=== PATIENT | female | born 1960 | race Caucasian/White ===

== ENCOUNTER 2019-02-03 10:42 | Outpatient (RCR) | payer OTHER, SELFPAY ==
[2019-01-24 10:29] LABS: Hematocrit 30.2 % (37.0-47.0); Hemoglobin 9.2 g/dL (12.0-15.0); Mean Corpuscular HGB Conc 30.5 g/dl (32-36); Mean Corpuscular Volume 91.8 fl (80-100); Mean Platelet Volume 10.6 fl (7.4-10.4); Platelet Count Result 156 k/mm3 (150-375); Red Blood Count 3.29 M/mm3 (4.2-5.4); Red Cell Distribution Width 14.1 % (11.5-14.5); White Blood Count 7.3 K/mm3 (4.5-10.0)
[2019-01-24 10:30] LABS: Albumin Level 3.2 g/dL (3.5-5.1); Blood Urea Nitrogen 13 mg/dL (7-17); Calcium 7.3 mg/dL (8.4-10.2); Carbon Dioxide 30 mmol/L (22-30); Chloride 102 mmol/L (98-107); Estimated Glomerular Filt Rate > 60; Glucose 205 mg/dL (65-105); Magnesium 1.3 mg/dL (1.6-2.3); Phosphorus 2.4 mg/dL (2.5-4.5); Potassium 3.5 mmol/L (3.4-5.0); Sodium 137 mmol/L (137-145)
[2019-01-26 10:10] LABS: Tacrolimus Prograf 5.4 mcg/L
[2019-01-26 13:15] LABS: Albumin Level 3.4 g/dL (3.5-5.1); Blood Urea Nitrogen 13 mg/dL (7-17); Calcium 8.5 mg/dL (8.4-10.2); Carbon Dioxide 30 mmol/L (22-30); Chloride 100 mmol/L (98-107); Estimated Glomerular Filt Rate > 60; Glucose 267 mg/dL (65-105); Magnesium 1.3 mg/dL (1.6-2.3); Phosphorus 2.2 mg/dL (2.5-4.5); Potassium 3.9 mmol/L (3.4-5.0); Sodium 137 mmol/L (137-145)
[2019-01-26 13:30] LABS: Hematocrit 32.7 % (37.0-47.0); Hemoglobin 9.8 g/dL (12.0-15.0); Mean Corpuscular Hemoglobin 28.1 pg (26-34); Mean Corpuscular Volume 93.7 fl (80-100); Mean Platelet Volume 10.3 fl (7.4-10.4); Platelet Count Result 235 k/mm3 (150-375); Red Blood Count 3.49 M/mm3 (4.2-5.4); Red Cell Distribution Width 14.4 % (11.5-14.5); White Blood Count 7.5 K/mm3 (4.5-10.0)
[2019-01-28 17:50] LABS: Tacrolimus Prograf 6.4 mcg/L
[2019-01-31 10:43] LABS: Hematocrit 33.8 % (37.0-47.0); Hemoglobin 10.2 g/dL (12.0-15.0); Mean Corpuscular HGB Conc 30.2 g/dl (32-36); Mean Corpuscular Hemoglobin 28.3 pg (26-34); Mean Corpuscular Volume 93.9 fl (80-100); Mean Platelet Volume 10.3 fl (7.4-10.4); Platelet Count Result 293 k/mm3 (150-375); Red Cell Distribution Width 14.8 % (11.5-14.5); White Blood Count 9.4 K/mm3 (4.5-10.0)
[2019-01-31 10:50] LABS: Albumin Level 3.7 g/dL (3.5-5.1); Blood Urea Nitrogen 21 mg/dL (7-17); Calcium 9.3 mg/dL (8.4-10.2); Carbon Dioxide 30 mmol/L (22-30); Chloride 100 mmol/L (98-107); Estimated Glomerular Filt Rate > 60; Glucose 138 mg/dL (65-105); Magnesium 1.5 mg/dL (1.6-2.3); Phosphorus 2.7 mg/dL (2.5-4.5); Potassium 4.5 mmol/L (3.4-5.0); Sodium 137 mmol/L (137-145)
[2019-02-01 23:32] LABS: Tacrolimus Prograf 7.9 mcg/L
[2019-02-03 10:52] LABS: Albumin Level 3.8 g/dL (3.5-5.1); Blood Urea Nitrogen 22 mg/dL (7-17); Calcium 9.9 mg/dL (8.4-10.2); Carbon Dioxide 29 mmol/L (22-30); Chloride 100 mmol/L (98-107); Estimated Glomerular Filt Rate 57; Glucose 169 mg/dL (65-105); Magnesium 1.4 mg/dL (1.6-2.3); Phosphorus 2.8 mg/dL (2.5-4.5); Potassium 4.3 mmol/L (3.4-5.0); Sodium 137 mmol/L (137-145)
[2019-02-03 10:58] LABS: Hematocrit 32.1 % (37.0-47.0); Hemoglobin 9.9 g/dL (12.0-15.0); Mean Corpuscular HGB Conc 30.8 g/dl (32-36); Mean Corpuscular Hemoglobin 28.9 pg (26-34); Mean Corpuscular Volume 93.9 fl (80-100); Mean Platelet Volume 10.5 fl (7.4-10.4); Platelet Count Result 250 k/mm3 (150-375); Red Blood Count 3.42 M/mm3 (4.2-5.4); Red Cell Distribution Width 14.7 % (11.5-14.5); White Blood Count 7.2 K/mm3 (4.5-10.0)
[2019-02-05 13:47] LABS: Tacrolimus Prograf 7.2 mcg/L
== END 2019-04-24 23:59 | disposition home or self-care (01) ==
LOC: ANHLAB 10:42
DX: N18.6 End stage renal disease (principal); I25.10 Atherosclerotic heart disease of native coronary artery without angina pectoris; I13.2 Hypertensive heart and chronic kidney disease with heart failure and with stage 5 chronic kidney disease, or end stage renal disease; E11.22 Type 2 diabetes mellitus with diabetic chronic kidney disease; Z48.22 Encounter for aftercare following kidney transplant
CPT/HCPCS: 36415; 80069; 80197; 83735; 85027

== ENCOUNTER 2019-02-14 11:23 | Outpatient (RCR) | payer OTHER, SELFPAY ==
[2019-02-07 12:51] LABS: Hematocrit 32.8 % (37.0-47.0); Mean Corpuscular HGB Conc 30.5 g/dl (32-36); Mean Corpuscular Hemoglobin 28.8 pg (26-34); Mean Corpuscular Volume 94.5 fl (80-100); Mean Platelet Volume 11.1 fl (7.4-10.4); Platelet Count Result 231 k/mm3 (150-375); Red Blood Count 3.47 M/mm3 (4.2-5.4); Red Cell Distribution Width 15.3 % (11.5-14.5); White Blood Count 6.8 K/mm3 (4.5-10.0)
[2019-02-07 13:09] LABS: Albumin Level 3.8 g/dL (3.5-5.1); Blood Urea Nitrogen 29 mg/dL (7-17); Carbon Dioxide 25 mmol/L (22-30); Chloride 101 mmol/L (98-107); Estimated Glomerular Filt Rate 46; Glucose 138 mg/dL (65-105); Magnesium 1.3 mg/dL (1.6-2.3); Phosphorus 2.5 mg/dL (2.5-4.5); Potassium 4.2 mmol/L (3.4-5.0); Sodium 139 mmol/L (137-145)
[2019-02-09 19:42] LABS: Tacrolimus Prograf 8.8 mcg/L
[2019-02-10 11:33] LABS: Hematocrit 31.4 % (37.0-47.0); Hemoglobin 9.5 g/dL (12.0-15.0); Mean Corpuscular HGB Conc 30.3 g/dl (32-36); Mean Corpuscular Hemoglobin 28.5 pg (26-34); Mean Corpuscular Volume 94.3 fl (80-100); Mean Platelet Volume 11.1 fl (7.4-10.4); Platelet Count Result 221 k/mm3 (150-375); Red Blood Count 3.33 M/mm3 (4.2-5.4); Red Cell Distribution Width 15.5 % (11.5-14.5); White Blood Count 6.9 K/mm3 (4.5-10.0)
[2019-02-10 12:07] LABS: Blood Urea Nitrogen 32 mg/dL (7-17); Carbon Dioxide 27 mmol/L (22-30); Chloride 100 mmol/L (98-107); Estimated Glomerular Filt Rate 36; Glucose 125 mg/dL (65-105); Potassium 4.6 mmol/L (3.4-5.0); Sodium 135 mmol/L (137-145)
[2019-02-10 12:14] LABS: Albumin Level 3.8 g/dL (3.5-5.1); Magnesium 1.4 mg/dL (1.6-2.3)
[2019-02-12 21:43] LABS: Tacrolimus Prograf 11.4 mcg/L
[2019-02-14 11:33] LABS: Hematocrit 31.4 % (37.0-47.0); Hemoglobin 9.7 g/dL (12.0-15.0); Mean Corpuscular HGB Conc 30.9 g/dl (32-36); Mean Platelet Volume 11.3 fl (7.4-10.4); Platelet Count Result 191 k/mm3 (150-375); Red Blood Count 3.34 M/mm3 (4.2-5.4); Red Cell Distribution Width 15.9 % (11.5-14.5); White Blood Count 7.6 K/mm3 (4.5-10.0)
[2019-02-14 11:46] LABS: Albumin Level 3.9 g/dL (3.5-5.1); Blood Urea Nitrogen 28 mg/dL (7-17); Calcium 9.9 mg/dL (8.4-10.2); Carbon Dioxide 29 mmol/L (22-30); Chloride 102 mmol/L (98-107); Estimated Glomerular Filt Rate 38; Glucose 103 mg/dL (65-105); Magnesium 1.6 mg/dL (1.6-2.3); Phosphorus 2.9 mg/dL (2.5-4.5); Potassium 4.4 mmol/L (3.4-5.0); Sodium 139 mmol/L (137-145)
[2019-02-16 07:02] LABS: Tacrolimus Prograf 8.3 mcg/L
== END 2019-05-08 23:59 | disposition home or self-care (01) ==
LOC: ANHLAB 11:23
PROVIDERS: Visit Provider Surgery
DX: Z48.22 Encounter for aftercare following kidney transplant (principal); N18.6 End stage renal disease; I25.10 Atherosclerotic heart disease of native coronary artery without angina pectoris; I13.2 Hypertensive heart and chronic kidney disease with heart failure and with stage 5 chronic kidney disease, or end stage renal disease; I50.32 Chronic diastolic (congestive) heart failure; E11.22 Type 2 diabetes mellitus with diabetic chronic kidney disease
CPT/HCPCS: 80069; 80197; 83735; 85027

== ENCOUNTER 2019-02-17 10:23 | Outpatient (RCR) | payer OTHER, SELFPAY ==
[2019-02-17 10:51] LABS: Hematocrit 31.7 % (37.0-47.0); Hemoglobin 9.7 g/dL (12.0-15.0); Mean Corpuscular HGB Conc 30.6 g/dl (32-36); Mean Corpuscular Hemoglobin 28.8 pg (26-34); Mean Corpuscular Volume 94.1 fl (80-100); Platelet Count Result 202 k/mm3 (150-375); Red Blood Count 3.37 M/mm3 (4.2-5.4); Red Cell Distribution Width 15.4 % (11.5-14.5)
[2019-02-17 12:39] LABS: Albumin Level 3.8 g/dL (3.5-5.1); Blood Urea Nitrogen 30 mg/dL (7-17); Calcium 10.6 mg/dL (8.4-10.2); Carbon Dioxide 31 mmol/L (22-30); Chloride 97 mmol/L (98-107); Estimated Glomerular Filt Rate 36; Glucose 56 mg/dL (65-105); Magnesium 1.8 mg/dL (1.6-2.3); Phosphorus 3.1 mg/dL (2.5-4.5); Potassium 4.3 mmol/L (3.4-5.0); Sodium 137 mmol/L (137-145)
[2019-02-18 14:15] LABS: BK Virus Specimen Source Whole Blood
[2019-02-18 19:56] LABS: Tacrolimus Prograf 9.1 mcg/L
[2019-02-20 10:28] LABS: CMV DNA Quant PCR IU/mL <200 IU/mL (<200); Cytomegalovirus DNA Quant PCR <2.30 log IU/mL (<2.30); Cytomegalovirus DNA Source Plasma
== END 2019-05-18 23:59 | disposition home or self-care (01) ==
LOC: ANHLAB 10:23
PROVIDERS: Visit Provider Surgery
DX: N18.6 End stage renal disease (principal); I50.32 Chronic diastolic (congestive) heart failure; I25.10 Atherosclerotic heart disease of native coronary artery without angina pectoris; I13.2 Hypertensive heart and chronic kidney disease with heart failure and with stage 5 chronic kidney disease, or end stage renal disease; E11.22 Type 2 diabetes mellitus with diabetic chronic kidney disease; Z48.22 Encounter for aftercare following kidney transplant
CPT/HCPCS: 80069; 80197; 83735; 85027; 87497; 87799

== ENCOUNTER → 2019-09-15 11:17 | Outpatient (CLI) | payer OTHER, MEDICARE, SELFPAY ==
--- NOTE | ~2019-09-15 | MM_ITS ---
EXAMINATION: MM screening [facility] BI w disha HISTORY: Screening mammogram TECHNIQUE: Craniocaudal and mediolateral oblique 3-D tomosynthesis images were obtained and synthetic 2-D images were generated. CAD analysis was submitted and interpreted. COMPARISON: 06/22/2018 BREAST PARENCHYMAL COMPOSITION: There are scattered areas of fibroglandular density. FINDINGS: RIGHT BREAST: An asymmetry is present in the middle third of the breast 5 cm from the nipple on crani ocaudal tomosynthesis image 32/67. LEFT BREAST: There is no evidence of suspicious mass, calcification, or architectural distortion to s uggest malignancy. There has been no significant interval change. IMPRESSION: 1. Right breast asymmetry on the craniocaudal view. 2. Additional mammographic views and possible breast ultrasound are recommended. BI-RADS Category 0: Incomplete: Needs additional imaging evaluation. Reviewed, dictated and finalized at location A. IMPRESSION: 1. Right breast asymmetry on the craniocaudal view. 2. Additional mammographic views and possible breast ultrasound are recommended . BI-RADS Category 0: Incomplete: Needs additional imaging evaluation.
--- NOTE | ~2019-09-15 | DEXA_ITS ---
Bone Density Report Name: Dot Dykes Age: 59 Sex: Female Ethnicity: White Date of : 1960 Indication: postmenopausal; screening for osteoporosis; height loss; end stage renal disease; Referring Provider: Jocelin Sanchez Study: Bone densitometry was performed. Exam Date: September 15, 2019 Accession number: [id number] Bone Density: Region BMD T-score Z-score Classification AP Spine (L1-L4) 0.884 -1.5 -0.1 Osteopenia Femoral Neck (Left) 0.674 -1.6 -0.3 Osteopenia Total Hip (Left) 0.711 -1.9 -1.0 Osteopenia Femoral Neck (Right) 0.706 -1.3 0.0 Osteopenia Total Hip (Right) 0.693 -2.0 -1.1 Osteopenia Total Hip Mean 0.702 -2.0 -1.1 Osteopenia World Health Organization criteria for BMD impression classify patients as: Normal (T-score at or above -1.0), Osteopenia (T-score between -1.0 and -2.5), or Osteoporosis (T-score at or below -2.5). 10-year Fracture Risk(1): Major Osteoporotic Fracture 8.1% Hip Fracture 0.7% Reported Risk Factors: [place] (), Neck BMD=0.674, BMI=25.3 (1) FRAX(R) Version 3.08. Fracture probability calculated for an untreated patient. Fracture probability may be lower if the patient has received treatment. Clinical Information Provided by Patient: Has used the following medications: Vitamin D, Calcium Has the following medical conditions: End stage renal disease Patient maximum height was 71 Menopause Age: 55 Onset of menses at age 12 Number of children 2 Impression: The patient has low bone mass, based on the Right Total Hip T-score. The patient has an estimated ten-year risk of hip fracture of 0.7% and an estimated ten-year risk of major fracture of 8.1%, based on the WHO FRAX algorithm. Discussion: BONE DENSITY IS LOW AT ONE OR MORE SKELETAL SITES. This patient's lowest T-score is low at one or more skeletal sites. It meets the World Health Organization's (WHO) criteria for ?low bone mass? (T-score between -1.0 and -2.5). The patient's 10-year risk of fracture as calculated by FRAX is less than the threshold where pharmacological therapy is recommended by the National Osteoporosis Foundation (NOF). However, all treatment decisions require clinical judgment and consideration of individual patient factors, including patient preferences, comorbidities, previous drug use, risk factors not captured in the FRAX model (e.g., frailty, falls, vitamin D deficiency, increased bone turnover, interval significant decline in bone density) and possible under or overestimation of fracture risk by FRAX. The patient should follow a healthful lifestyle (good nutrition with adequate calcium and vitamin D, and appropriate weight-bearing exercise). Follow-Up: Consider repeating this study in 2 to 3 years to reassess this patient's status, or sooner if there is some new clinical indic
== END ==
PROVIDERS: Visit Provider Obstetrics & Gynecology
DX: Z12.31 Encounter for screening mammogram for malignant neoplasm of breast (principal); Z79.52 Long term (current) use of systemic steroids; R92.8 Other abnormal and inconclusive findings on diagnostic imaging of breast; M85.88 Other specified disorders of bone density and structure, other site; M85.852 Other specified disorders of bone density and structure, left thigh; M85.851 Other specified disorders of bone density and structure, right thigh
CPT/HCPCS: 77063; 77067; 77080

== ENCOUNTER → 2019-10-03 14:28 | Outpatient (CLI) | payer OTHER, MEDICARE, SELFPAY ==
--- NOTE | ~2019-10-03 | MMUS_ITS ---
EXAMINATION: MM diagnostic mammo unilat RT, US breast RT limited HISTORY: Follow-up right breast asymmetry TECHNIQUE: Additional 3-D tomosynthesis images of the right breast were performed and synthetic 2-D i mages were generated. CAD analysis was submitted and interpreted. High resolution right breast ultras ound was performed. COMPARISON: 09/15/2019 BREAST PARENCHYMAL COMPOSITION: Breast composed of scattered areas of fibroglandular density. FINDINGS: MAMMOGRAPHIC FINDINGS: The focal area of asymmetry is less apparent with spot compression and mediolateral views, most likel y superimposed fibroglandular tissue. ULTRASOUND: Left breast ultrasound: At 2:00, 6 cm from the nipple, there is a 4 mm hypoechoic mass, most likely benign. There is parallel orientation, circumscribed margins, no enhanced through transmission or internal vascularity. IMPRESSION: 1. Probable benign right breast mass and focal right breast asymmetry. 2. Recommend 6 month follow-up diagnostic right mammogram and ultrasound BI-RADS category 3, probably benign findings. Reviewed, dictated and finalized at location A. IMPRESSION: 1. Probable benign right breast mass and focal right breast asymmetry. 2. Recommend 6 month follow-up diagnostic right mammogram and ultrasound BI-RADS category 3, probably benign findings.
== END ==
PROVIDERS: Visit Provider Obstetrics & Gynecology
DX: R92.8 Other abnormal and inconclusive findings on diagnostic imaging of breast (principal)
CPT/HCPCS: 76642; 77065

== ENCOUNTER → 2020-04-12 08:52 | Outpatient (CLI) | payer OTHER, MEDICARE, SELFPAY ==
--- NOTE | ~2020-04-12 | MMUS_ITS ---
EXAMINATION: MM diagnostic [facility] RT w disha, US breast RT limited HISTORY: Probable benign right breast mass and focal right breast asymmetry follow-up from 10/03/2019 d iagnostic right mammogram and limited right breast ultrasound examination TECHNIQUE: ML, MLO and craniocaudal 3-D tomosynthesis images of the right breast were performed and s ynthetic 2-D images were generated. CAD analysis was submitted and interpreted. High resolution targe andres right breast ultrasound was performed. COMPARISON: 10/16/2019 diagnostic right digital mammogram and limited right breast ultrasound 09/15/2019 bilateral digital screening mammogram FINDINGS: MAMMOGRAPHIC FINDINGS: No suspicious mass, architectural distortion, malignant calcification, skin thickening or retraction or significant new or developing density is evident. The focal area of asymmetry suggested on a craniocaudal Tomosynthesis image () of 09/15/2019 is n o longer evident. ULTRASOUND: 2:00 6 cm from nipple: Stable appearance of 2.8 x 3.5 mm hypoechoic area without internal vascularity or posterior shadowing Parallel circumscribed 7 x 6 x 2 mm hypoechoic area at 5:00 5 cm from nipple, without internal vascul arity or posterior shadowing. IMPRESSION: 1. No mammographic evidence of malignancy 2. Routine annual mammographic screening is recommended. BI-RADS Category 2: Benign finding(s). Reviewed, dictated and finalized at location A. [employer] IMPRESSION: 1. No mammographic evidence of malignancy 2. Routine annual mammographic screening is recommended. BI-RADS Category 2: Benign finding(s).
== END ==
PROVIDERS: PCP Internal Medicine; Visit Provider Obstetrics & Gynecology
DX: N63.10 Unspecified lump in the right breast, unspecified quadrant (principal); R92.8 Other abnormal and inconclusive findings on diagnostic imaging of breast
CPT/HCPCS: 76642; 77061; 77065; G0279

== ENCOUNTER → 2020-10-17 16:21 | Outpatient (CLI) | payer OTHER, MEDICARE, SELFPAY ==
--- NOTE | ~2020-10-17 | MM_ITS ---
EXAMINATION: MM screening [facility] BI w disha HISTORY: Screening mammogram TECHNIQUE: Craniocaudal and mediolateral oblique 3-D tomosynthesis images were obtained and synthetic 2-D images were generated. CAD analysis was submitted and interpreted. COMPARISON: 04/12/2020, 10/03/2019, 09/15/2019, 06/22/2018 BREAST PARENCHYMAL COMPOSITION: There are scattered areas of fibroglandular density. FINDINGS: There is no evidence of suspicious mass, calcification, or architectural distortion to sugg est malignancy in either breast. There has been no suspicious interval change. IMPRESSION: 1. No mammographic evidence of malignancy. 2. Recommend routine screening mammography in one year. BI-RADS Category 1: Negative Reviewed, dictated and finalized at location A.
== END ==
PROVIDERS: PCP Internal Medicine; Visit Provider Obstetrics & Gynecology
DX: Z12.31 Encounter for screening mammogram for malignant neoplasm of breast (principal)
CPT/HCPCS: 77063; 77067

== ENCOUNTER → 2022-01-14 10:26 | Outpatient (CLI) | payer MEDICARE, OTHER, SELFPAY ==
--- NOTE | ~2022-01-14 | MM_ITS ---
EXAMINATION: MM screening [facility] BI w disha HISTORY: Screening TECHNIQUE: Craniocaudal and mediolateral oblique 3-D tomosynthesis images were obtained and synthetic 2-D images were generated. CAD analysis was submitted and interpreted. COMPARISON: Comparison to multiple prior studies sequentially, with oldest reviewed study dated 06/22. BREAST PARENCHYMAL COMPOSITION: Breast composed of scattered areas of fibroglandular density FINDINGS: There is no evidence of suspicious mass, calcification, or architectural distortion to sugg est malignancy in either breast. There has been no suspicious interval change. IMPRESSION: 1. No mammographic evidence of malignancy. 2. Recommend routine screening mammography in one year. BI-RADS Category 1: Negative Reviewed, dictated and finalized at location A. 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
== END ==
PROVIDERS: PCP Internal Medicine; Visit Provider Obstetrics & Gynecology
DX: Z12.31 Encounter for screening mammogram for malignant neoplasm of breast (principal)
CPT/HCPCS: 77063; 77067

== ENCOUNTER 2023-03-24 10:16 | Outpatient (CLI) | payer OTHER, SELFPAY ==
--- NOTE | ~2023-03-24 | MM_ITS ---
EXAMINATION: MM screening [facility] BI w disha HISTORY: Screening mammogram TECHNIQUE: Craniocaudal and mediolateral oblique 3-D tomosynthesis images were obtained and synthetic 2-D images were generated. CAD analysis was submitted and interpreted. COMPARISON: 01/14/2022, 10/17/2020, 04/12/2020, 10/03/2019, 09/15/2019 BREAST PARENCHYMAL COMPOSITION: There are scattered areas of fibroglandular density. FINDINGS: No suspicious mass, calcification, or architectural distortion are identified in either lars ast to suggest malignancy. There has been no suspicious interval change. IMPRESSION: 1. No mammographic evidence of malignancy. 2. Recommend routine screening mammography in one year. BI-RADS Category 1: Negative Reviewed, dictated and finalized at location A. 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
--- NOTE | ~2023-03-24 | DEXA_ITS ---
Bone Density Report Name: LEONARDO ADAMS Age: 63 Sex: Female Ethnicity: White Date of : 1960 Indication: osteopenia; height loss; history of glucocorticoids; end stage renal disease; postmenopausal Referring Provider: Jocelin Sanchez Study: Bone densitometry was performed. Exam Date: March 24, 2023 Accession number: [id number] Bone Density: Region BMD T-score Z-score Classification AP Spine (L1-L4) 0.775 -2.5 -0.8 Osteoporosis Femoral Neck (Left) 0.646 -1.8 -0.4 Osteopenia Total Hip (Left) 0.626 -2.6 -1.5 Osteoporosis Femoral Neck (Right) 0.695 -1.4 0.0 Osteopenia Total Hip (Right) 0.644 -2.4 -1.3 Osteopenia Total Hip Mean 0.635 -2.5 -1.4 Osteoporosis World Health Organization criteria for BMD impression classify patients as: Normal (T-score at or above -1.0), Osteopenia (T-score between -1.0 and -2.5), or Osteoporosis (T-score at or below -2.5). 10-year Fracture Risk: FRAX not reported because: Some T-score for Spine Total or Hip Total or Femoral Neck at or below -2.5 Previous Exams: Region Exam Age BMD T-score BMD Change BMD Change Date g/cm2 vs Baseline vs Previous AP Spine(L1-L4) 03/24/2023 63 0.775 -2.5 -0.110* -0.110* 09/15/2019 59 0.884 -1.5 Total Hip(Left) 03/24/2023 63 0.626 -2.6 -0.084* -0.084* 09/15/2019 59 0.711 -1.9 Total Hip(Right) 03/24/2023 63 0.644 -2.4 -0.049* -0.049* 09/15/2019 59 0.693 -2.0 *Denotes significance at 95% confidence level, LSC for AP Spine = 0.022 g/cm2, LSC for Total Hip = 0.027 g/cm2 Clinical Information Provided by Patient: Has taken Glucocorticoids Has used the following medications: Vitamin D, Calcium, prednesone Has the following medical conditions: End stage renal disease, parathyroid removed Patient maximum height was 71 Menopause Age: 55 Drinks caffeinated beverages Onset of menses at age 12 Number of children 2 Impression: The patient has osteoporosis, based on the Left Total Hip T-score. The patient has risk factors, including: history of glucocorticoid therapy. The BMD for the AP Spine(L1-L4) decreased, changing by -0.110 since the last DXA exam. The BMD for the Total Hip(Left) decreased, changing by -0.084 since the last DXA exam. The BMD for the Total Hip(Right) decreased, changing by -0.049 since the last DXA exam. Discussion: INCREASED RISK OF FRACTURE. BONE DENSITY IS UNDESIRABLY LOW AT ONE OR MORE SKELETAL SITES, CO
== END 2023-03-24 10:17 ==
LOC: MICIMG 10:17
PROVIDERS: PCP Obstetrics & Gynecology; Visit Provider Obstetrics & Gynecology
DX: Z12.31 Encounter for screening mammogram for malignant neoplasm of breast (principal); M81.0 Age-related osteoporosis without current pathological fracture; M85.852 Other specified disorders of bone density and structure, left thigh; M85.851 Other specified disorders of bone density and structure, right thigh
CPT/HCPCS: 77063; 77067; 77080

== ENCOUNTER 2024-04-26 11:53 | Outpatient (CLI) | payer MEDICARE, OTHER, SELFPAY ==
--- NOTE | ~2024-04-26 | MM_ITS ---
EXAMINATION: MM screening [facility] BI w disha HISTORY: Screening mammogram TECHNIQUE: Craniocaudal and mediolateral oblique 3-D tomosynthesis images were obtained and synthetic 2-D images were generated. CAD analysis was submitted and interpreted. COMPARISON: 03/24/2023, 01/14/2022, 10/17/2020 BREAST PARENCHYMAL COMPOSITION:Dense: The breasts are heterogeneously dense, which may obscure small masses. FINDINGS: No suspicious mass, calcification, or architectural distortion are identified in either lars ast to suggest malignancy. There has been no suspicious interval change. IMPRESSION: No mammographic evidence of malignancy. Recommend routine screening mammography in one year. BI-RADS Category 1: Negative Reviewed, dictated and finalized at location . 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
== END 2024-04-26 11:54 | disposition home or self-care (01) ==
LOC: MICIMG 11:55
PROVIDERS: PCP Obstetrics & Gynecology; Visit Provider Obstetrics & Gynecology
DX: Z12.31 Encounter for screening mammogram for malignant neoplasm of breast (principal)
CPT/HCPCS: 77063; 77067

== ENCOUNTER 2024-07-14 00:46 | Day surgery (SDC) | payer MEDICARE, OTHER, SELFPAY ==
[2024-07-06 10:57] VITALS: BMI 21.4
--- OUTSIDE RECORDS SUMMARY | 2024-07-14 00:50 | XMS_ITS | Data Portability ---
Author Organization [facility] MARYBeatriz Garcia [facility] Address [address] [facility] [place] [facility] [place] [address] Care Team Providers Care Window Assembler Name Role Phone LAZ DE SANTIAGO Primary Care Provider EMELYN FORDE Pile Driving Technician Assessment Encounter Date Assessment Date Assessment LastModified by Organization Details LastModified Time 04/04/2024 04/04/2024 flu swab positive for influenza A 30 mg daily x5 days she will double check this with the transplant team. Rest fluids if she gets worse she will contact us or transplant regular follow up with ri in 6 months [email or web address] Not available 04/04/2024 14:02:15 Plan of Treatment Reminders Order Date Submit Date Provider Last Modified By Organization Details Last Modified Time Details Appointments ANY 15 2024 11:00A M Laz De Santiago MD Not available Not available Not available Lab None recorded . Referral None recorded . Procedures None recorded . Surgeries None recorded . Imaging None recorded . Medication Orders Tamiflu 75 mg capsule 2024 025 [id number] [id number], [address], [place], [id number], 04/04/2024 16:43:59 Tamiflu 30 mg capsule 2024 025 [id number] [facility] #[id number], [address], [place], [id number], 04/04/2024 16:43:59 Patient TargetsNo targets recorded. Patient InstructionsNo instructions recorded. Reason for Referral None Reported. Results Created Date Observation Date Name Description Value Unit Range Abnormal Flag Note LastModifiedBy Organization Detail LastModifiedTime 03/09/19 25 03/09/2024 SARS- CoV+S ARS-C oV-2 (COVI D-19) Ag [Pres ence] in Respi rator y syste m speci men by Rapid immun oassa y influenza A Ag, POC Negati ve text: negati ve Influ octavio A Ag, POC Negat francia Negat francia [facility] EDW Not Available Not Available 04/14/2024 15:46:46 03/09/19 25 03/09/2024 SARS- CoV+S ARS-C oV-2 (COVI D-19) Ag [Pres ence] in Respi rator y syste m speci men by Rapid immun oassa y influenza B Ag, POC Negati ve text: negati ve Influ octavio B Ag, POC Negat francia Negat francia [facility] EDW Not Available Not Available 04/14/2024 15:46:46 03/09/19 25 03/09/2024 SARS- CoV+S ARS-C oV-2 (COVI D-19) Ag [Pres ence] in Respi rator y syste m speci men by Rapid immun oassa y covid-19 Ag POC Presum ptive Negati ve text: presum ptive negati ve, invali d COVID -19 Ag POC Presu mptiv e Negat francia Presu mptiv e Negat francia, Inval id [facility] EDW Not Available Not Available 04/14/2024 15:46:46 03/09/19 25 03/09/2024 SARS- CoV+S ARS-C oV-2 (COVI D-19) Ag [Pres ence] in Respi rator y syste m speci men by Rapid immun oassa y interpretati on and review of laboratory results Normal Not Available Not Available 04/02 15:46:46 05/12/1905/11/2024 Hemog lobin A1c/H emogl obin. total in Blood hemoglobin A1C, POC 5.9 % low: 4%high : 5.6% Hemog lobin A1C, POC 5.9 4.0 - 5.6 % Not Available Not Available 05/12/2024 14:56:53 Result Notes None recorded. Problems Name Problem SNOMED Code Status Onset Date Resolution Date Notes Provider Name and Address Organization Details Recorded Time Influenza caused by Influenza A virus 871516124 Active 2024 Laz De Santiago MD Attn: Chris patricia,[address] [place], [address], [facility] 14:00:50 Chronic diastolic heart failure 727163228 Active 2024 Laz De Santiago MD Attn: Chris patricia,[address] [place], [address], [facility] 14:00:51 Hyperlipidemia 79135578 Active 2024 Laz De Santiago MD Attn: Chris patricia,[address] [place], [address], [facility] 14:00:53 Essential hypertension 71406703 Active 2024 Laz De Santiago MD Attn: Chris patricia,[address] [place], [address], [facility] 14:00:54 Secondary hyperparathyro idism 49917570 Active 2024 Laz De Santiago MD Attn: Chris patricia,[address] [place], [address], [facility] 14:00:57 History of renal transplant 065042370 Active 2024 Laz De Santiago MD Attn: Chris patricia,[address] [place], [address], [facility] 14:00:58 Problem Notes None recorded. Procedures Surgical History Date Name Laterality Status Provider Name and Address Organization Details Recorded Time 03/02/19 19 transplant of kidney completed Ghada Luna MA [facility] 04/04/2024 12:13:42 cholecystectomy completed Ghada Luna MA [facility] 04/04/2024 12:12:30 amputation of the foot completed Ghada Luna MA [facility] 04/04/2024 12:13:26 Imaging Results None recorded. Procedure Notes None recorded. Medical Equipment None Reported. Allergies Allergen ID Allergen Name Allergen Category Reaction Reaction Severity Criticality Documentation Date Start Date Code Code System Note Provider Name and Address Organization Details Recorded Time 061795 ampicilli n / sulbactam medicatio n palpitati ons Not available high 04/04/2024 71021 48 RxNorm 01/18 - Appro farhad to give cefaz william with unasy n aller gy per Jacob alanis MD/Randell Crowe aft, Pharm D [place], [place] - [facility] 12:04:59 [id number] Product containin g glucocort icoid (product) medicatio n Not available Not available Not available 04/04/20242021 15022 6006 SNOMED Recei farhad VSTs, DO NOT give stero ids unles s discu ssed with prima ry atten ding. unrec ogniz ed react ion (text : Unkno wn, code: [id number]) (from exter nal sourc e) [place], [place] - [facility] 5 12:05:10 297214 codeine medicatio n nausea Not available low 04/04/2024 2670 RxNorm unrec ogniz ed react ion (text : Stoma ch upset , code: [id number]) (from exter nal sourc e) [place], [place] - [facility] 5 12:05:13 021850 rosuvasta tin medicatio n myalgias (muscle pain) Not available high 04/04/2024 30934 2 RxNorm Per cardi ology note, also has histo ry of intol eranc e to atorv astat in [place], [place] [facility] 12:05:16 Medications Name Sig Start Date Stop Date Status Note LastModified by Organization Details LastModified Time carvedilol 6.25 mg tablet active Not Available Not Available Not Available prednisone 10 mg tablet 04/04 completed Not Available Not Available Not Available atorvastati n 20 mg tablet 04/04 completed Not Available Not Available Not Available atorvastati n 10 mg tablet active Not Available Not Available Not Available cefpodoxime 100 mg tablet 04/04 completed Not Available Not Available Not Available sulfamethox azole 400 mg-trimetho prim 80 mg tablet TAKE 1 TABLET BY MOUTH TWICE DAILY FOR 14 DAYS THEN TAKE 1 TABLET BY MOUTH DAILY active Not Available Not Available No t Available prednisone 5 mg tablet active Not Available Not Available Not Available Calcium Antacid 200 mg (as calcium carbonate 500 mg) chewable tablet CHEW 1 TABLET BY MOUTH TWICE DAILY active Not Available Not Available No t Available ciprofloxac in 250 mg tablet 04/04 completed Not Available Not Available Not Available amlodipine 5 mg tablet 04/04 completed Not Available Not Available Not Available trimethopri m 100 mg tablet TAKE 1 TABLET BY MOUTH AT BEDTIME. START AFTER FINISHING COURSE OF BACTRIM 04/04 completed Not Available Not Available Not Available ciprofloxac in 500 mg tablet 04/04 completed Not Available Not Available Not Available Tamiflu 75 mg capsule Take 1 capsule twice a day by oral route for 5 days. 04/04 completed Not Available Not Available Not Available aspirin 81 mg tablet,jerson yed release active Not Available Not Available Not Available pantoprazol e 40 mg tablet,jerson yed release active Not Available Not Available Not Available calcitriol 0.5 mcg capsule active Not Available Not Available Not Available Vitamin B-6 100 mg tablet TAKE 2 TABLETS BY MOUTH TWICE DAILY active Not Available Not Available No t Available lisinopril 5 mg tablet active Not Available Not Available Not Available insulin lispro (U-100) 100 unit/mL subcutaneou s solution active Not Available Not Available N ot Available estradiol 0.01% (0.1 mg/gram) vaginal cream USE 1 GRAM VAGINALLY WEEKLY 04/04 completed Not Available Not Available Not Available moxifloxaci n 0.5 % eye drops 04/04 completed Not Available Not Available Not Available oseltamivir 30 mg capsule TAKE 1 CAPSULE BY MOUTH EVERY DAY FOR 5 DAYS active Not Available Not Available No t Available Envarsus XR 1 mg tablet,exte nded release TAKE 4 TABLETS BY MOUTH DAILY active Not Available Not Available No t Available Dexcom G6 Sensor active Not Available Not Available Not Available Vitals Date Recorded Body height Body mass index (BMI) Body weight Heart rate Oxygen saturation Oxygen saturation in Arterial blood by Pulse oximetry Systolic blood pressure Diastolic blood pressure Provider Name and Address Organization Details Last Updated DateTime 175.26 cm 20.7 kg/m2 07232.9 3 g 81 /min 99 % 99 % 122 mm[Hg] 80 mm[Hg] Ghada Luna [place] [facility] 12:04:42 Social History Question Answer Notes LastModified by E Ink Details LastModified Time Tobacco Smoking Status Never Smoker Ghada Luna MA null, [place] - [facility] 04/04/2024 12:02:15 Are You Blind Or Do You Have Difficulty Seeing? No Information n ot available 04/04/2024 What Is Your Level Of Caffeine Consumption? Moderate Information not available 04/04/2024 In The 14 Days Before Symptom Onset, Have You Had Close Contact With A Laboratory-confirm ed COVID-19 While That Case Was Ill? No Information n ot available 04/04/2024 In The 14 Days Before Symptom Onset, Have You Had Close Contact With A Person Who Is Under Investigation For COVID-19 While That Person Was Ill? No Information not available 04/04/2024 Have You Been To An Area Known To Be High Risk For COVID-19? No Information not available 04/04/2024 Are You Deaf Or Do You Have Serious Difficulty Hearing? No Information not available 04/04/2024 What Type Of Diet Are You Following? REGULAR Information n ot available 04/04/2024 Are There Any Guns Present In Your Home? No Information not available 04/04/2024 What Was The Date Of Your Most Recent Tobacco Screening? 04/04/2024 Information not available 04/04/2024 Do You Use Your Seat Belt Or Car Seat Routinely? Yes Information not available 04/04/2024 Do You Have Smoke And Carbon Monoxide Detectors In Your Home? Yes Information not available 04/04/2024 Do You Use Sunscreen Routinely? Yes Information not available 04/04/2024 Has Tobacco Cessation Counseling Been Provided? No Information not available 04/04/2024 Sex: Female Functional Status Question Answer Note LastModified by Organizat ion Details LastModified Time Do you use any illicit or recreational drugs? No Information not available 04/04/2024 Do you or have you ever used any other forms of tobacco or nicotine? No Information not available 04/04/2024 What is your level of alcohol consumption? Occasional Information not available 04/04/2024 Are you able to care for yourself? Yes Information n ot available 04/04/2024 Mental Status None recorded. Family History Nothing Reported. Medical History Condition Response High Blood Pressure Y Kidney or Bladder Problems Y High Cholesterol Y Gynecological HistoryNo gynecological history recorded. Obstetrics History GPAL:G 0 P 0 0 0 0 Immunizations Vaccine Type Date Status Note Provider Nam e and Address Organization Details Recorded Time Influenza, MDCK, quadrivalent, PF 3 completed AL[place], [place] - [facility] 04/04/2024 11:58:49 COVID-19, mRNA, LNP-S, PF, 30 mcg/0.3 mL dose 1 completed [place] [facility] 04/04/2024 11:58:49 COVID-19, mRNA, LNP-S, PF, 30 mcg/0.3 mL dose 1 completed [place] [facility] 04/04/2024 11:58:50 COVID-19, mRNA, LNP-S, PF, 30 mcg/0.3 mL dose 1 completed [place] [facility] 04/04/2024 11:58:50 COVID-19, mRNA, LNP-S, PF, 30 mcg/0.3 mL dose, jasen-sucrose 2 completed [place] [facility] 04/04/2024 11:58:50 COVID-19, mRNA, LNP-S, bivalent, PF, 30 mcg/0.3 mL dose 2 completed [place] [facility] 04/04/2024 11:58:50 RSV, recombinant, protein subunit RSVpreF, adjuvant reconstituted, 0.5 mL, PF 3 completed Ghada Luna, [place], [place] [facility] 04/04/2024 11:58:50 COVID-19, mRNA, LNP-S, PF, jasen-sucrose, 30 mcg/0.3 mL 3 completed Ghada Luna, [place] [facility] 04/04/2024 11:58:50 COVID-19, mRNA, LNP-S, PF, jasen-sucrose, 30 mcg/0.3 mL 4 completed Ghada [place] [facility] 04/04/2024 11:58:50 pneumococcal polysaccharide PPV23 3 completed Ghada [place] [facility] 04/04/2024 11:58:50 Influenza, split virus, trivalent, preservative 5 completed Ghada [place] [facility] 04/04/2024 11:58:50 Influenza, split virus, trivalent, PF 3 completed Gh[place] [facility] 04/04/2024 11:58:50 Influenza, split virus, trivalent, PF 4 completed Gh[place] [facility] 04/04/2024 11:58:50 Influenza, split virus, quadrivalent, PF 0 completed Gh[place] [facility] 04/04/2024 11:58:50 Influenza, split virus, quadrivalent, PF 0 completed Ghada [place] [facility] 04/04/2024 11:58:50 Influenza, split virus, quadrivalent, PF 8 completed Ghada [place] [facility] 04/04/2024 11:58:50 Influenza, split virus, quadrivalent, PF 2 completed Gh[place] [facility] 04/04/2024 11:58:50 Influenza, split virus, quadrivalent, PF 1 completed Gh[place] [facility] 04/04/2024 11:58:50 Influenza, split virus, quadrivalent, PF 6 completed Ghada [place] [facility] 04/04/2024 11:58:50 Past Encounters Encounter ID Performer Location Encounter Start Date Encounter Closed Date Diagnosis/Indication Diagnosis SNOMED-CT Code Diagnosis ICD10 Code Diagnosis Note [id number] Laz De Santiago MD [facility] [place] [address] [place] [address] 04/04/2024 11:52:55 04/04/2024 13:02:26 Body mass index 20-24 - normal 063856512 Z68.20 Influenza caused by Influenza A virus 344872198 J09.X2 Chronic di astolic heart failure 535599296 I50.32 Hyperlipidemia 54495208 E78.5 Essential hypertension 54534769 I10 Secondary hyperparathyroidism 84771494 E21.1 History of renal transplant 757792343 Z94.0 Coronary atherosclerosis 997087663 I25.10 Health Concerns Section Related Observation LastModified by Organization Detai ls LastModified Time None Recorded Concern Status LastModified by Organization Details LastModified Time None Recorded Advance Directives Directive None Recorded Payers Encounter Date Sequence Insurance Name Policy Number Policy Coats Covered Member ID Coats Member ID Guarantor Name 04/04/2024 1 [facility] [id number] Dot Templeton Shwetha [id number] Dot Nedra Tadeo 04/04/2024 2 [place] Dot Vazdanielle [id number] Dot Nedra Jania Notes Date Note Type Note Provider Name and Address Organization Details Recorded Time 025 text/ht ml 64-year-old has been cough congestion 5 days maybe some low-grade fever mild body aches.Kidney transplant for type 1 diabetestype 1 diabetesdiabetic retinopathydiabetic neuropathypersistent BK viremiahyperlipidemiahypertension Laz De Santiago MD Attn: Accounting, [address] [facility], [place], [address], [facility] 04/04/2024 14:02:36 OBGyn Episode No OBEpisode recorded.
--- OUTSIDE RECORDS SUMMARY | 2024-07-14 00:50 | XMS_ITS | Encounter Summary ---
Author Organization [facility] Address [address] [place] [address] Care Team Providers Care Roof Tile Layer Name Role Phone JuhiLeon MD PhD Unavailable Teena Perez RN Unavailable Wilson Plata RN Unavailable Marisabel Glez RN Unavailable [phone] Sam Paredes MD Unavailable [phone] Nikita Diallo MD Unavailable [phone] Jocelin Sanchez MD Unavailable [phone] Carlos De Santiago MD Primary Care Provider + [phone] Lev Ponce MD Unavailable [phone] Encounter Details Date Type Department Care Team (Late st Contact Info) Description 06/23/2024 Telephone [facility] Cardiology [address] [place] [address] Lev Ponce MD [address] [address], [place] [address] Social History Tobacco Use Types Packs/Day Years Used Date Smoking Tobacco: Never Smokeless Tobacco: Never Alcohol Use Standard Drinks/Week Comments No 0 (1 standard drink = 0.6 oz pur e alcohol) [facility] Utilities Answer Date Recorded In the past 12 months has [employer] electric, gas, oil, or water company threatened to shut off services in your home? No 05/24/2024 Social Connection and Isolat ion Panel [NHANES] Answer Date Recorded In a typical week, how many times do you talk on the phone with family, friends, or neighbors? Three times a week 05/24/2024 How often do you get togethe r with friends or relatives? Once a week 05/24/2024 How often do you attend chur ch or mandaeism services? More than 4 times per year 05/24/2024 Do you belong to any clubs o r organizations such as alevism groups, unions, fraternal or athletic groups, or school groups? No 05/24/2024 How often do you attend meet ings of the clubs or organizations you belong to? Never 05/24/2024 Are you , , di vorced, , never , or living with a partner? 05/24/2024 Overall Financial Resource Strain (CARDIA) Answe r Date Recorded How hard is it for you to pa y for the very basics like food, housing, medical care, and heating? Not very hard 05/24/2024 PHQ-2 Answer Date Recorded PHQ-2 Total Score 0 05/24/2024 Hunger Vital Sign Answer Date Recorded Within the past 12 months, y ou worried that your food would run out before you got the money to buy more. Never true 05/25/19 Within the past 12 months, t he food you bought just didn't last and you didn't have money to get more. Never true 05/24/2024 PRAPARE - Transportation Answer Date Re corded In the past 12 months, has l ack of transportation kept you from medical appointments or from getting medications? No 05/01 In the past 12 months, has l ack of transportation kept you from meetings, work, or from getting things needed for daily living? No 05/24/2024 PHQ-9 Answer Date Recorded PHQ-9 Total Score 0 05/24/2024 Housing Stability Vital Sign Answer Bar e Recorded In the last 12 months, was t here a time when you were not able to pay the mortgage or rent on time? No 05/24/2024 In the past 12 months, how m any times have you moved where you were living? 0 05/24/2024 At any time in the past 12 m [facility], were you homeless or living in a group home (including now)? No 05/24/2024 Personal Safety Answer Date Recorded Have you ever been in or are you currently in a harmful physical or emotional relationship or is someone making you feel afraid or unsafe? 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 Pt said her BP there was 180/90ish the 4 times they took it and wouldn't do her test. Advised her to contact us and make an appt to get better control of her BP before retrying her stress test. Pt said she took her meds before stress test and then when she got home her BP was 134/82. Pt said at home after her meds her BP usually runs 130's/80's and on occasion it can get up to 159/90. Scheduled pt to see CT in a few weeks. Advised her to start checking her BP daily and keep a log to bring in with her for CT to review. Pt appreciated the assistance. * Telephone Encounter - Diamond Barraza - 06/23/2024 3:21 PM CDT Pt requesting call to discuss elevated BP. Her BP was 180/90 this morning then 124/82 when she got home. She was unable to get [place] stress test done today due to elevated BP. Contact: documented in this encounter Plan of Treatment Not on file documented as of this encounter Visit Diagnoses Not on filedocumented in this encounter Care Teams Roof Tile Layer Relationship Specialty Start Date End Date Carlos De Santiago MD [address] [place] [address] PCP - General Internal Medicine 06/23/24 Leon Reynaga MD PhD Fellow Endocrinology Diabetes & Metabolism 09/15/18 Teena Perez, RN [address] [facility] [address] [place] [address] Hide Handler Hide Handler 03/13/20 Wilson Plata RN [address] [facility] [address] [place] [address] Secondary Kidney Coordinator Transplant 03/15/20 Marisabel Glez RN [address] [facility] [address] [place] [address] Hide Handler 02/29/24 Sam Paredes MD [address] [facility] [address] [place] [address] System Administration Advisor Dermatology 03/08/24 Nikita Diallo MD [address] [facility] [address] [place] [address] Referring Physician Nephrology 03/09/24 Jocelin Sanchez MD [address] [place] [address] Obstetrics and Gynecology 05/03/24 Lev Ponce MD [address] [facility] [address] [place], [place] [id number] Surgical Scheduler Cardiology 06/23/24 documented as of this encounter
--- OUTSIDE RECORDS SUMMARY | 2024-07-14 00:50 | XMS_ITS | Clinical Summary ---
Author Organization [facility] Address [address] [place] [address] Care Team Providers Care Wine Consultant Name Role Phone Leon Reynaga MD PhD Unavailable Teena Perez RN Unavailable Wilson Plata RN Unavailable Marisabel Glez RN Unavailable Sam Paredes MD Unavailable Nikita Diallo MD Unavailable [phone] Jocelin Sanchez MD Unavailable [phone] Carlos De Santiago MD Primary Care Provider [phone] Lev Ponce MD Unavailable [phone] Allergies Active Allergy Reactions Criticality Noted Date Comments Codeine Stomach upset,Nausea only Low Corticosteroids (Glucocorticoids) Unknown 12/13/2021 Received VSTs, DO NOT give steroids unless discussed with primary attending. 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 1 box = 3 sensors. 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) Will use 1 transmitter every 90 days 1 Device 3 04/18/19 20 Active polypod leucot ext-niacinamide (Heliocare Advanced) 120-250 mg capsule Take 2 capsules by mouth Active pyridoxine (VITAMIN B-6) 100 mg tablet Take 2 tablets (200 mg total) by mouth 2 (two) times a day 360 tablet 3 04/17/19 23 Active vit A/vit C/vit E/zinc/copper (PRESERVISION AREDS ORAL) 02/08/20 21 Active sodium bicarbonate 650 mg tablet Take 2 tablets (1,300 mg total) by mouth daily 60 tablet 11 08/06/19 24 025 Active calcitRIOL (ROCALTROL) 0.5 mcg capsule TAKE 1 CAPSULE BY MOUTH DAILY 90 capsule 3 09/28/19 24 Active calcium carbonate (Tums) 500 mg (200 mg elemental calcium) chewable tablet Take 1 tablet/chew tab (500 mg total) by mouth 2 (two) times a day 180 tablet/chew tab 11/25/19 24 Active sulfamethoxazol e-trimethoprim (BACTRIM) 400-80 mg per tablet TAKE 1 TABLET BY MOUTH DAILY 90 tablet 3 12/28/19 24 025 Active atorvastatin (LIPITOR) 10 mg tablet Take 1 tablet (10 mg total) by mouth daily 90 tablet 3 02/04/20 24 Active aspirin 81 mg enteric coated tablet TAKE 1 TABLET BY MOUTH DAILY 90 tablet 3 03/28/19 25 Active tacrolimus XR (ENVARSUS XR) 1 mg tablet extended release 24 hrIndications:P revention of Kidney Transplant Rejection Take 4 tablets (4 mg total) by mouth daily 120 tablet 11 04/21/[address] (PROTONIX) 40 mg EC tablet TAKE 1 TABLET BY MOUTH DAILY 90 tablet 3 04/22/19 25 Active insulin lispro (HumaLOG, ADMELOG) 100 unit/mL vial for injection Inject subcutaneously 0-50 units continuously via insulin pump for a total daily dose of 50 units 50 mL 3 05/20/19 25 Active carvediloL (COREG) 6.25 mg tablet TAKE 1 TABLET BY MOUTH TWICE DAILY WITH MEALS 180 tablet 3 05/31/19 25 Active lisinopriL (PRINIVIL,ZESTR IL) 5 mg tablet TAKE 1 TABLET BY MOUTH DAILY 90 tablet 3 05/31/19 25 Active predniSONE (DELTASONE) 5 mg tablet TAKE 1 TABLET BY MOUTH DAILY 90 tablet 3 06/02/19 25 Active amLODIPine (NORVASC) 5 mg tabletIndicatio ns:hypertension Take 1 tablet (5 mg total) by mouth daily 30 tablet 1 07/06/19 25 Active Active Problems Patient Care Coordination No te Formatting of this note migh t be different from the original. 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 11/19/2023 Assessment & Plan (11/20/2023 10:37 AM CDT): -history of CKD stage 4 presumed secondary to diabetes, diagnosis was made without biopsy reportedly, now status post kidney transplant in December 2018 -currently admitted for renal transplant biopsy due to recently noted worsening in creatinine and proteinuria -admitted for overnight observation, no complications noted -CBC stable -Renal Txp aware of admission, following for prelim results -hold aspirin for at 7 days postprocedure -continue Envarsus, prednisone, Bactrim -monitor tacro trough, goal 3-5 per outpatient notes -monitor BMP, Cr 3.10 this AM -outpatient follow-up with Dr. 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 Initially started IVFs. - Taking adequate PO thus IVF discontinued. - Urine output adequate - Strength improved. Assessment & Plan (06/05/2021 5:14 PM CDT): Pt admitted for fatigue in setting of poor PO intake due to nausea and vomiting for the past 5 days. Initially started IVFs. - Taking adequate PO thus IVF discontinued. - Urine output adequate Assessment & Plan (05/30/2021 2:03 PM CDT): Pt admitted for fatigue in setting of poor PO intake due to nausea and vomiting for the past 5 days. - IVF discontinued as pt taking in 2-3 L PO fluids now, urine output adequate Hypercalcemia 05/27/2021 Assessment & Plan (06/06/2021 2:48 PM CDT): Does have a history of secondary hyperparathyroidism s/p parathyroidectomy. Currently on tums BID and calcitriol, held on admission. PTH low at 7 and Vit D WNL at 36. - CTM BMP - 4/2 PTHrp pending Assessment & Plan (06/05/2021 5:15 PM CDT): Does have a history of secondary hyperparathyroidism s/p parathyroidectomy. Currently on tums BID and calcitriol, held on admission. PTH low at 7 and Vit D WNL at 36. - CTM BMP - 4/2 PTHrp pending Assessment & Plan (06/01/2021 9:49 AM CDT): Does have a history of secondary hyperparathyroidism s/p parathyroidectomy. Currently on tums BID and calcitriol, held on admission. PTH low at 7 and Vit D WNL at 36. 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 - PCR quant slightly elevated compared to prior Assessment & Plan (06/04/2021 3:07 PM CDT): First identified in 01/2021. - PCR quant slightly elevated compared to prior Assessment & Plan (06/01/2021 9:47 AM CDT): First identified in 01/2021. - PCR quant slightly elevated compared to prior Hypernatremia 01/18/2021 Anemia 01/18/2021 Assessment & Plan (06/06/2021 2:47 PM CDT): Chronic anemia baseline 8.0 - 9.0. - Hgb in 9.4g/dL - Total of 2units PRBCs given (4/3 and 4/4) Assessment & Plan (06/05/2021 5:13 PM CDT): Chronic anemia baseline 8.0 - 9.0. - Hgb in 9.4g/dL - Total of 2units PRBCs given (4/3 and 4/4) Assessment & Plan (06/01/2021 9:44 AM CDT): Chronic anemia baseline 8.0 - 9.0. - Hgb in 7's during this admission - Per Renal note, Hgb ideally above 9.0 for biopsy 4/6. Plan to transfuse 4/4 and/or 4/5. Encounter for aftercare following kidney transpl ant 01/19/2019 Assessment & Plan (01/20/2019 2:21 PM SENIOR DATA SCIENTIST): Cr downtrending, UOP improving -Calcitrol added d/t decreased calcium levels as well as oscal Assessment & Plan (01/19/2019 2:35 PM SENIOR DATA SCIENTIST): Cr downtrending, UOP improving -Calcitrol added d/t decreased calcium levels Encounter for long-term (cur rent) use of high-risk medication 01/19/2019 Assessment & Plan (01/20/2019 2:22 PM SENIOR DATA SCIENTIST): -Prograf increased to 6 mg BID, level undetectable after receiving 4 mg last night -continue Prednisone taper -Myfortic 720 mg BID; when Prograf trough is between 7-10, will decrease to 360 mg BID Assessment & Plan (01/19/2019 2:36 PM SENIOR DATA SCIENTIST): -Will start Prograf 4 mg BID -continue Prednisone taper -Myfortic 720 mg BID; when Prograf trough is between 7-10, will decrease to 360 mg BID -Thymo #2 today Hypocalcemia 08/14/2018 Assessment & Plan (08/14/2018 5:49 PM CDT): - s/p subtotal parathyroidectomy, initial post-op PTH was 50, repeat yesterday was <5. Patient also with vitamin D deficiency - Continue calcitriol dosing to 1mg BID for better absorption. - Calcium carbonate supplementation is likely too high for effective absorption and can consider decreasing dose. Would not recommend more than 1 g elemental calcium with each dose. - Patient will need very close outpatient monitoring of calcium once discharged; She will have BMPs checked at PCP office Thursday and sees nephrology next Thursday. - continue ergocalciferol for vitamin D deficiency Anemia of chronic renal failure, stage 4 (severe ) 05/31/2018 Coronary artery disease invo lving hoopa coronary artery of hoopa heart without angina pectoris 03/09/2017 Assessment & Plan (06/06/2021 2:46 PM CDT): - Holding Aspirin for now (renal bx). Holding Losartan d/t MADIE - Amlodipine, Atorvastatin, and Carvedilol. Assessment & Plan (06/05/2021 5:10 PM CDT): - Holding Aspirin for now (renal bx). Holding Losartan d/t MADIE - Amlodipine, Atorvastatin, and Carvedilol. Assessment & Plan (06/02/2021 2:20 PM CDT): Continue asa (held for now), statin, coreg, hold losartan History of cardiomyopathy 06/10/2016 Overview (07/25/2016): H/O cardiomyopathy Dyslipidemia due to type 1 diabetes mellitus (CM S/HCC) 12/25/2014 Overview (06/05/2016): Mixed dyslipidemia Assessment & Plan (06/06/2021 2:47 PM CDT): - Atorvastatin 10mg qHS Assessment & Plan (06/05/2021 5:12 PM CDT): - Atorvastatin 10mg qHS Assessment & Plan (05/27/2021 9:19 PM CDT): Continue statin Benign hypertension with CKD (chronic kidney disease) stage IV 07/16/2013 Overview (06/06/2016): Chronic kidney disease, stage IV (severe) Essential hypertension 07/16/2013 Overview (06/07/2016): Hypertension Assessment & Plan (11/19/2023 3:52 PM CDT): -resumed home Coreg and lisinopril Assessment & Plan (06/06/2021 2:46 PM CDT): Holding Losartan in setting of MADIE. - Amlodipine, Atorvastatin, and Carvedilol. Assessment & Plan (06/05/2021 5:10 PM CDT): Holding Losartan in setting of MADIE. - Amlodipine, Atorvastatin, and Carvedilol. Assessment & Plan (06/02/2021 2:22 PM CDT): - holding losartan ISO MADIE - increased Coreg to 12.5 mg BID -> 25mg bid on 06/02 - started amlodipine, increased to 10 mg 05/31 - ideally want SBP 120-140 for biopsy on 06/05 Assessment & Plan (01/20/2019 2:22 PM SENIOR DATA SCIENTIST): Controlled, continue to monitor Assessment & Plan (01/19/2019 2:37 PM SENIOR DATA SCIENTIST): Controlled, continue to monitor Mitral valve insufficiency 07/16/2013 Overview (06/07/2016): Mitral valve regurgitation Tricuspid valve insufficiency 07/16/2013 Overview (06/07/2016): Tricuspid valve regurgitation Cardiomyopathy 07/16/2013 Overview (06/07/2016): Cardiomyopathy Assessment & Plan (06/06/2021 2:47 PM CDT): Well compensated. Last TTE 04/2019 EF 55-60%. G1DD -Carvedilol Assessment & Plan (06/05/2021 5:11 PM CDT): Well compensated. Last TTE 04/2019 EF 55-60%. G1DD -Carvedilol Assessment & Plan (05/27/2021 9:30 PM CDT): Well compensated. Last TTE 04/2019 EF 55-60%. G1DD -continue coreg Diabetic neuropathy ([facility]) 07/16/2013 Overview (06/07/2016): Diabetic neuropathy Aortic valve disorder 07/16/2013 Overview (06/07/2016): Aortic valve disease Type 1 diabetes mellitus 07/16/2013 Overview (06/07/2016): Diabetes mellitus Assessment & Plan (11/20/2023 9:50 AM CDT): -currently using insulin pump, Endocrine following for use while inpatient -ACHS blood sugar checks ordered since Dexcom readings can not be charted per hospital policy -inpatient BG goal 140-180 Assessment & Plan (06/06/2021 2:47 PM CDT): Currently on insulin pump and has dexcom. 05/27 A1c 6.3%. - Blood glucose range over past 12 hours 108-166mg/dL - Continue POC TID+HS; Consistent Carbohydrate diet. - Endocrine consulted on 06/04/2021. Assessment & Plan (06/05/2021 5:11 PM CDT): Currently on insulin pump and has dexcom - Blood glucose range over past 12 hours 135-166mg/dL - Continue POC TID+HS; Consistent Carbohydrate diet. - Endocrine consulted on 06/04/2021. Assessment & Plan (05/28/2021 11:05 AM CDT): Currently on insulin pump and has dexcom - Endocrinology consulted Assessment & Plan (01/20/2019 2:22 PM SENIOR DATA SCIENTIST): Continue Lantus and SSI, patient bridged with NPH d/t likely steroid induced hyperglycemia Assessment & Plan (01/19/2019 2:37 PM SENIOR DATA SCIENTIST): Continue Lantus and SSI, patient bridged with NPH d/t likely steroid induced hyperglycemia Assessment & Plan (08/14/2018 5:49 PM CDT): On lantus and sliding scale only at home. A1C of ~7.5, but is likely artificially low in setting of anemia of kidney disease. She notes occasional episodes of AM hypoglycemia indicating too much basal insulin. Plan - continue lantus 18 units daily - patient with limited appetite, would decrease humalog to 3 units TIDAC - LDSSI Discharge: - recommended patient establish care with an automatic vulcanizing operator especially with possible transplant in future - discharge on lantus 18 units daily, humalog 3 units with LDSSI with meals Resolved Problems Problem Noted Date Diagnosed Date Resolved Date Acute kidney failure 11/19/2023 024 Adnexal cyst 05/29/2021 06/05/2021 Assessment & Plan (06/05/2021 5:15 PM CDT): Interval increase of previously known cyst noted on CT AP 05/28/21. Patient has have follow up TVUS with [facility], already has appt in July 2021 Assessment & Plan (05/29/2021 10:48 AM CDT): Interval increase of previously known cyst noted on CT AP 05/28/21. - pt to have follow up TVUS with [facility], already has appt in July 2021 Kidney replaced by transplant 09/23/2019 11/19/2023 Assessment & Plan (06/06/2021 2:46 PM CDT): Continue home prednisone, tacrolimus. Daily tacro trough levels (0400) - 4/6 Tacrolimus level 6.4ng/mL>>4/7 12ng/mL. - Discussed with Transplant team and decrease Tacrolimus XR to 4mg Daily. - Tacrolimus and Prednisone. Assessment & Plan (06/05/2021 5:08 PM CDT): Continue home prednisone, tacrolimus. Daily tacro trough levels (0400) - Tacrolimus XR 6mg daily - 4/6 Tacrolimus level 6.4ng/mL. - Daily Tacrolimus level (between 0400-0600am). - Renal Transplant Team Following. Assessment & Plan (06/01/2021 9:49 AM CDT): Continue home prednisone, tacrolimus. Daily tacro trough levels (0400) -renal transplant consult -tacro increased to 6 mg 06/01/21 Acute kidney injury (CMS/HCC) 03/03/2019 11/19/2023 Assessment & Plan (06/06/2021 2:45 PM CDT): Presented with nausea/vomiting and weakness. Serum creatinine now acutely worse to 8.72mg/dL from recent b/l of 2.9-3.3mg/dL. Renal doppler 05/28 without hydronephrosis, but showing new 5.7 cm exophytic cyst at midzone of the kidney. Unable to distinguish if cyst is renal or ovarian in nature, and further imaging is recommended. Pt had completed 10-day course of ampicillin for UTI 05/17 - 05/27. UA on admission still with pyuria +LE. Urine culture with clinically insignificant growth. Transplant ID consulted and given lack of LUTS symptoms recommended to discontinue antibiotics. FENa consistent with post-renal etiology, IV fluids may have confounded to some degree. - 06/05 Right Renal Biopsy: Final Results pending - Most recent Serum Creatinine 6.29mg/dL (down form admission 8.72mg/dL). - Discussed with Renal Transplant Team ( Dr. Marcus) and will continue Prednisone at 5mg daily: Hold Vit D, Tums, Losartan, and Hydralazine; and Restart Aspirin on 06/13/2021. - Follow Up Appointment in Renal Transplant clinic on 07/26/2021. Assessment & Plan (06/05/2021 5:05 PM CDT): Presented with nausea/vomiting and weakness. Serum creatinine now acutely worse to 8.72mg/dL from recent b/l of 2.9-3.3mg/dL. Renal doppler 05/28 without hydronephrosis, but showing new 5.7 cm exophytic cyst at midzone of the kidney. Unable to distinguish if cyst is renal or ovarian in nature, and further imaging is recommended. Pt had completed 10-day course of ampicillin for UTI 05/17 - 05/27. UA on admission still with pyuria +LE. Urine culture with clinically insignificant growth. Transplant ID consulted and given lack of LUTS symptoms recommended to discontinue antibiotics. FENa consistent with post-renal etiology, IV fluids may have confounded to some degree. - 06/05 Right Renal Biopsy: Results pending - Renal Transplant team following. - Most recent Serum Creatinine 6.63mg/dL (down form admission 8.72mg/dL). - Daily BMP Assessment & Plan (06/01/2021 9:51 AM CDT): Appears as though Cr has been up-trending in the last few months. Now acutely worse to 8.72 from recent b/l of 2.9-3.3. Renal doppler 05/28 without hydronephrosis, but showing new 5.7 cm exophytic cyst at midzone of the kidney. Unable to distinguish if cyst is renal or ovarian in nature, and further imaging is recommended. Pt had completed 10-day course of ampicillin for UTI 05/17 - 05/27. UA on admission still with pyuria +LE. Urine culture with clinically insignificant growth. Transplant ID consulted and given lack of LUTS symptoms recommended to discontinue antibiotics. FENa consistent with post-renal etiology, IV fluids may have confounded to some degree. -Cr plateau at 8.4 - 8.6. UOP adequate. - likely in polyuric phase - replete electrolytes PRN -renal transplant consult, appreciate recs - Donor specific antibodies negative - ASA held since 05/29. Renal biopsy planned on 06/05. Acute blood loss anemia 01/20/201912/31 Assessment & Plan (01/20/2019 2:23 PM SENIOR DATA SCIENTIST): -Patient to receive 1 unit PRBC today -Patient also to receive IV iron End stage renal disease 12/13/201801/01 Overview (12/13/2018): Added automatically from request for surgery [id number] Hyperparathyroidism 07/29/2018 01/20/20 Overview (08/24/2018): DIAGNOSIS: End stage renal disease Secondary hyperparathyroidism PROCEDURE PERFORMED:(Ameya 08/06/18) 4 gland parathyroid exploration with subtotal excision Assessment & Plan (08/14/2018 5:42 PM CDT): S/p subtotal parathyroidectomy Pre-transplant evaluation fo r kidney transplant 05/31/2018 01/20/2020 Hypotension 02/21/2014 09/16/2018 Overview (06/05/2016): Symptomatic hypotension Encounters Date Type Department Care Team Description 07/06/2024 Documentation [facility] Transplant Kidney [address] [facility] [address] Mailstop [phone] [place] [address] Marisabel Glez, RN Kidney Eval 07/05/2024 8:00 AM CDT Office Visit [facility] Cardiology [address] [place] [address] Gabby Pepe NP Essential hypertension (Primary Dx); Chronic rejection of kidney transplant 06/24/2024 Documentation [facility] Transplant Kidney [address] [facility] [address] [phone] [place] [address] [place] 06/23/2024 Documentation [facility] Transplant Kidney [address] [facility] [address] Mailstop [phone] [place] [address] [place] Kidney Eval 06/23/2024 Telephone [facility] Cardiology [address] [place] [phone] Lev Ponce MD 06/23/2024 Documentation [facility] Transplant Kidney [address] [facility] [address] Mailstop [phone] [place] [address] Marisabel Glez RN Kidney Eval 06/20/2024 Orders Only [facility] Nephrology [address] [facility] [address] [place] [address] [place] [address] Christianne Clemente MD 06/10/2024 10:50 AM CDT Office Visit [facility] Nephrology [address] [facility] [address] [place] [address] [place] [address] Encounter for aftercare following kidney transplant (Primary Dx); Chronic kidney disease, stage 5 (HCC); Encounter for long-term (current) use of high-risk medication; Renal osteodystrophy; Hypertension, unspecified type; BK viremia; Anemia in end-stage renal disease (HCC) 06/08/2024 Orders Only [facility] Nephrology [address] [facility] [address] [place] [address] [place] [address] Cisco Alexandra MD 05/24/2024 Documentation [facility] Transplant Kidney [address] [facility] [address] Mailstop [phone] [place] [address] [place] 05/23/2024 Documentation [facility] Transplant Kidney [address] [facility] [address] Mailstop [phone] [place] [address] Marisabel Glez RN Kidney Eval 05/23/2024 Telephone [facility] Transplant Kidney [address] [facility] [address] Mailstop [phone] [place] [address] Marisabel Glez RN Kidney Eval (Clinic follow up letter) 05/17/2024 2:00 PM CDT Social Work [facility] [address] [facility], [place] [address] 05/17/2024 1:30 PM CDT Office Visit [facility] Nephrology [address] [facility] [address] [place] [address] [place] [address] Natividad Meza MD Pre-transplant evaluation for kidney transplant (Primary Dx); Hypertension, unspecified type; Dyslipidemia; Renal osteodystrophy; Stage 5 chronic kidney disease (HCC); Secondary hyperparathyroidism of renal origin 05/17/2024 8:45 AM CDT - 05/17/2024 11:59 PM CDT Hospital Encounter [facility] ([facility]) [address] [place] [address] Pre-transplant evaluation for kidney transplant; End stage renal disease (HCC) Discharge Disposition: Discharge to home or self care 05/17/2024 8:45 AM CDT Lab [facility] ([facility]) [address] [place] [phone] Pre-transplant evaluation for kidney transplant; End stage renal disease (HCC) 05/17/2024 8:44 AM CDT - 05/17/2024 11:59 PM CDT Hospital Encounter [facility] ([facility]) [address] [place] [id number] Pre-transplant evaluation for kidney transplant; End stage renal disease (HCC) Discharge Disposition: Discharge to home or self care 05/17/2024 8:44 AM CDT - 05/17/2024 11:59 PM CDT Hospital Encounter [facility] ([facility]) [address] [place] [address] Pre-transplant evaluation for kidney transplant; End stage renal disease (HCC) Discharge Disposition: Discharge to home or self care 05/17/2024 8:35 AM CDT - 05/17/2024 11:59 PM CDT Hospital Encounter [facility] ([facility]) [address] [place] [address] Dania Mcclure MD Pre-transplant evaluation for kidney transplant; End stage renal disease (HCC) Discharge Disposition: Discharge to home or self care 05/11/2024 3:00 PM CDT Office Visit [facility] Endocrinology Metabolism and Lipid [address] [facility] 13th [place] [address] [place] [address] Vickie Solorzano MD Type 1 diabetes mellitus with diabetic chronic kidney disease, unspecified CKD stage (HCC) (Primary Dx); S/P parathyroidectomy; Dyslipidemia due to type 1 diabetes mellitus (CMS/HCC) (HCC) 05/10/2024 9:30 AM CDT Documentation [facility] [address] [facility], [address]th [address] [place], [place] [address] Ximena Jaffe 05/03/2024 Documentation [facility] Transplant Kidney [address] Mailstop [id number] [place] [address] Marisabel Glez, RN Kidney Eval 05/02/2024 Documentation [facility] Transplant Kidney [address] Mailstop [id number] [place] [address] Marisabel Glez, RN Kidney Eval 04/21/2024 Telephone [facility] Transplant Kidney [address] Mailstop [id number] [place] [address] Teena Perez RN 04/19/2024 Orders Only [facility] Nephrology [address] [facility] 5th [place] [address] [place] [id number] Cisco Alexandra MD 04/19/2024 Documentation [facility] Transplant Kidney [address] Mailstop [id number] [place] [address] Marisabel Glez, RN Kidney Eval from Last 3 Months Immunizations Immunization Administration Dates Next Due COVID-19 MRNA (MODERNA) .5 M L (50 MCG) VACCINE (12 YEARS AND UP) 12/22/2022 Hep B, Dialysis 11/02/2018,07/14/2018,05/31/2018 06/30/2018 Influenza, Quadrivalent, Spl it, Preservative Free, Intramuscular 12/01/2019,04/29/2019,12/10/2017,12/01 Influenza, Trivalent, IM (MDV) 02/14/2015,2012 Influenza, Trivalent, Preser vative Free, Intramuscular 03/15/2012 Influenza, Unspecified 12/28/2023,12/10/2022 Moderna SARS-CoV-2 Monovalen t Vaccination (12+ YRS) 12/28/2023 Pfizer SARS-CoV-2 Monovalent Vaccination (12+ Yrs) PURPLE 12/11/2021,05/18/2020,04/27/2020 Pneumococcal Conjugate PCV 13 05/31/2018 Pneumococcal Polysaccharide PPV23 01/06/2013 RSV Vaccine, Pref, Recombina nt, Subunit, Adjuvanted, PF, IM (Arexvy) 12/22/2022 Surgical History Surgery Date Site/Laterality Comments TOE AMPUTATION 03/02/2014 - 03/01/2015 Right all 5 toes amputated DEBRIDEMENT FOOT 03/02/2005 - 03/01/2006 Right diabetic right foot ulcer osteo debridement FOOT FRACTURE SURGERY 03/02/2015 - 03/01/2016 Left Repair metatarsal fracture ACHILLES TENDON LENGTHENING 03/02/2006 - 03/01/2007 Right CHOLECYSTECTOMY 03/02/2013 - 03/01/2014 PARATHYROIDECTOMY 08/06/2018 KIDNEY TRANSPLANT 12/31/2018 - 01/29/2019 US GUIDED BIOPSY RENAL 06/05/2021 N/A ORGAN TRANSPLANT 01/18/19 US GUIDED BIOPSY RENAL 11/19/2023 N/A CATARACT EXTRACTION 2022 Medical History Medical History Date Comments Sinus congestion Osteomyelitis (HCC) 2005 Type 1 diabetes (HCC) Diabetes T ype II Diabetic neuropathy (HCC) CHF (congestive heart failure) (HCC) ESRD (end stage renal disease) (HCC) HTN (hypertension) Hyperparathyroidism Arthritis 07/2018 Anemia Cataract Heart disease Family History Medical History Relation Name Comments Cancer Brother Naveen Bella Coronary artery disease Father Ajay Bella Heart attack Father Ajay Bella Heart failure Father Ajay Bella Congestive He art Failure; Hypertension Father Ajay Bella Hypertension; Other Father Ajay Bella Pacemaker; Arthritis Maternal Grandfather Weston Kumari Arthritis Maternal Grandmother Roma Kumari Arthritis Mother Peggy Bella Hypertension Mother Peggy Bella Hypertension; Stroke Mother Peggy Bella Other Mother's Sister 2 sudden car diac ; Other Sister 1 Parkinsons; Anesthesia problems Neg Hx Relation Name Status Comments Brothplacido Bella Father Ajay Bella Maternal Grandfather Weston Kumari Maternal Grandmother Roma Kumari Mother Peggy Bella Alive Mother's Sister 1 Alive Mother's Sister 2 Sister 1 Alive Social History Tobacco Use Types Packs/Day Years Used Date Smoking Tobacco: Never Smokeless Tobacco: Never Tobacco Cessation:Counseling Given: Not Answered Alcohol Use Standard Drinks/Week Comments No 0 (1 standard drink = 0.6 oz pur e alcohol) [facility] Utilities Answer Date Recorded In the past 12 months has [employer], oil, or water [employer] threatened to shut off services in your [...] often do you attend chur ch or spiritism services? More than 4 times per year 05/24/2024 Do you belong to any clubs o r organizations such as orthodox groups, unions, fraternal or athletic groups, or [...] any time in the past 12 m [place], were you homeless or living in a residential (including now)? No 05/24/2024 Personal Safety Answer Date Recorded Have you ever been in or are you currently in a harmful physical or emotional relationship or is someone making you feel afraid or unsafe? 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 Oxygen Saturation 99% 07/05/2024 7:49 AM CDT Inhaled Oxygen Concentration - - Weight 66.2 kg (146 lb) 07/05/2024 7:49 AM CDT Height 177.8 cm (5' 10 ) 07/05/2024 7:49 AM CDT Body Mass Index 20.95 07/05/2024 7:49 AM CDT Plan of Treatment Health Maintenance Due Date Last Done Comments Albumin Creatinine Ratio, Urine 1960 Breast Cancer Screening-Mammogram 1960 Cervical Cancer Screening 1960 Colon Cancer Screening-Colonoscopy 1960 Foot Exam 1960 Dilated Eye Exam 01/03/1970 DTaP/Tdap/Td Vaccine (1 - Tdap) 01/03/1971 Regular Well Visit/Exam 18-64 01/03/1978 Zoster Vaccine (1 of 2) 01/03/1979 Pneumococcal vaccine <65 (3 of 3 - PPSV23, PCV20 or PCV21) 07/26/2018 05/31/2018, 01/06/2013 TSH Level 09/07/2021 09/07/2020, 03/30/2019 Covid-19 Vaccine (8 - 2023-2 5 season) 2024 12/28/2023, 12/22/2022, 12/22/2022, Additional history exists [id number]|2024-07-14 07:57:30|2024-07-14 07:57:30|[id number]||||"Anes - Initial Pre Proc Eval Procedure: Operation Date: 07/14/24 08:30 Proposed Procedures p Screening Colonoscopy - Chaim Reardon MD Date/Time: 07/14/24 07:57 Surgeon: Chaim Reardon MD Pre Op Diagnosis: Hx of polyps Patient Data Age: 64 Gender: F Height: 1.75 m Weight: 66.1 kg Last Vital Signs Temp 36.7 C 07/14/24 07:30 Pulse 77 07/14/24 07:30 Resp 18 07/14/24 07:30 BP 149/79 H 07/14/24 07:30 Pulse Ox 100 07/14/24 07:30 O2 Del Method Room Air 07/14/24 07:30 Allergies Allergy/AdvReac Type Severity Reaction Status Date / Time ampicillin Allergy Unknown RAPID HR Verified 07/14/24 07:39 codeine Allergy Unknown Nausea Verified 07/14/24 07:39 sulbactam Allergy Unknown RAPID HR Verified 07/14/24 07:39 Home Medications Medication Instructions Recorded Confirmed Type aspirin 81 mg tablet,delayed 81 mg PO DAILY 11/06/22 07/14/24 History release atorvastatin 20 mg tablet 20 mg PO DAILY 11/06/22 07/14/24 History calcitriol 0.5 mcg capsule 0.5 mcg PO DAILY 11/06/22 07/14/24 History carvedilol 6.25 mg tablet 6.25 mg PO Q12H 11/06/22 07/14/24 History insulin lispro 100 unit/mL 1 sliding scale dose subcut 11/06/22 07/14/24 History subcutaneous cartridge (Humalog USEASDIRECTD U-100 Insulin) pantoprazole 40 mg tablet,delayed 40 mg PO QAM 11/06/22 07/14/24 History release prednisone 5 mg tablet 5 mg PO DIRECTED 11/06/22 07/14/24 History tacrolimus 4 mg tablet,extended 4 mg PO DAILY 11/06/22 07/14/24 History release 24 hr (Envarsus XR) amlodipine 5 mg tablet 5 mg PO DAILY 07/06/24 07/14/24 History lisinopril 5 mg tablet 5 mg PO DAILY 07/06/24 07/14/24 History sodium bicarbonate 650 mg tablet 650 mg PO DAILY 07/06/24 07/14/24 History sulfamethoxazole 400 1 tablet PO DAILY 07/06/24 07/14/24 History mg-trimethoprim 80 mg tablet (Bactrim) vitamin B6-vitamin E-magnesium 1 tablet PO BID 07/06/24 07/14/24 History tablet Patient hx anesthesia problems: none Family hx anesthesia problems: none Results Review: All pre-operative results and documents have been reviewed as part of the pre-operative evaluation. [facility] Past Medical History Medical History PKD (polycystic kidney disease) Kidney disease Hypertension DM type 1 (diabetes mellitus, type 1) Microcytic anemia Osteopenia Surgical History Surgical History Kidney transplanted 2019 H/O foot surgery 2015-transmetatarsal amputation-right foot Hx of cholecystectomy H/O parathyroidectomy Family History Family History Mother Hypertension Cerebrovascular accident Sibling Family history of Parkinson's disease Father Family history of congestive heart failure Acute myocardial infarction Other Family history of cardiovascular disease Social History Social History Smoking status: Never smoker Alcohol intake: never Substance use: never Substance use type: does not use Do You Feel Safe in your Home?: Yes Lack of Transportation: No Lack of Food: Never True Current Housing: I Have Housing Concerned About Future Housing: No Difficulty Paying Gas/Electric Bills: No Difficulty Paying for Meds: No Currently Unemployed: No Education: Trade/Vocational Certificate Difficulty w/ Childcare or Family Care: No Living arrangements: with family Occupation/Education: retired Gender identity (if verbalized by the patient): Female Sexual Orientation (if Verbalized by the Patient): Straight or Heterosexual Spiritual care concerns: No Anes - Eval Final PreProcedure Day of Procedure 07/14/24 07:57 Patient weight: normal Heart: regular rate and rhythm Lungs: clear to auscultation Airway: Mallampati scale class II Neurological: alert and oriented Last oral intake: >/= 8 hours ASA classification: IV Emergent: no Anesthetic plan: proceed Anesthesia type and monitoring: general GIVS and standard monitoring Results Review: All pre-operative results and documents have been reviewed as part of the pre-operative evaluation. Informed Consent: The patient's anesthetic plan and its attendant risks and benefits were discussed with the patient/family/POA. Questions were solicited and answers provided to the satisfaction of the patient/family/POA."
--- OUTSIDE RECORDS SUMMARY | 2024-07-14 00:51 | XMS_ITS ---
Author Organization [facility] Address [address] [place] [address] Care Team Providers Care Die Caster Name Role Phone Leon Reynaga MD PhD Unavailable Teena Perez RN Unavailable Wilson Plata RN Unavailable Marisabel Glez RN Unavailable Sam Paredes MD Unavailable Nikita Diallo MD Unavailable Jocelin Sanchez MD Unavailable [phone] Carlos De Santiago MD Primary Care Provider + [phone] Lev Ponce MD Unavailable Transplant Episode Kidney Recipient 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 Donor Information Organ ABO Source Meets Risk Criteria HLA Match Mismatches Cross Match Left Kidney Transplanted A Positive Live A: B: DR: Left Kidney Donor Serology Results Anti-CMV CMV IgG: Negative EBV IgG EBV VCA IgG: Positive Anti-HBcAb HBC Total: Nonreactive HBsAg HBsAg: Nonreactive HBV DNA No results on file Anti-HCV HCV Ab: Nonreactive Anti-HIV I/II HIV Ag/Ab Combo Assay: Nonreactive Anti-HTLV I/II No results on file RPR/VDRL RPR: Non-Reactive EBV IgM No results on file HBsAb HBsAb: Reactive EBNA No results on file SARS CoV-2 No results on file Care Team Name Role Phone Fax Email Teena Perez RN Kidney Coordinator [phone] N/ A N/A Teena Perez RN Small Engine Specialist [phone] N/A N/A [employer] T[employer] Primary Recyclable Materials Sorter N/A N/A N/A Wilson Plata, JOSIE Secondary Coordinator Secondary Kidney Coordinator [phone] N/A N/A Ashley Estes Secondary Recyclable Materials Sorter N/A N/A N/A Angel Swain MD Referring Physician [phone] N/A Ximena Jaffe Network Control Operator [phone] N/A N/A Events Post-Transplant Pre-Transplant Admitted: 01/18/2019 Referred: 10/21/2017 Transplanted: 01/18/2019 Evaluation began: 9 Discharged: 01/21/2019 Committee: 09/13/2018 Center waitlisted: 9
--- OUTSIDE RECORDS SUMMARY | 2024-07-14 00:51 | XMS_ITS | Data Portability ---
Author Organization [place] - [facility], Main Office Address [address] [place] [address] Assessment Encounter Date Assessment Date Assessment LastModified by Organization Details LastModified Time 06/12/2022 06/12/2022 From my standpoint she can have cataracts urge blood work has been ordered by her transplant team as long as that looks good then we will sign the form follow-up with me in 4 months continue current therapy [email or web address] Not available 06/22/2022 10:39:45 11/11/2022 11/11/2022 A1c was 5.9 lipid panel looks pretty good she will continue to follow-up with Transplant will get her set up for her routine colonoscopy she will follow-up me with 4 months blood work from her transplant team has been reviewed and entered into the medical record blood pressure could be a little bit better controlled 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 Lab None record ed. Referral None record ed. Procedures None record ed. Surgeries None record ed. Imaging None record ed. Medication Orders None record ed. Patient TargetsNo targets recorded. Patient InstructionsNo instructions recorded. Reason for Referral None Reported. Results Created Date Observation Date Name Description Value Unit Range Abnormal Flag Note LastModifiedBy Organization Detail LastModifiedTime 01/15/2001/14/2022 MAMMO , scree john, digit al, bilat eral No observ ation record ed. [id number] [facility] [address], [place], [address], 04/30/2022 14:53:37 Result Notes None recorded. Problems Name Problem SNOMED Code Status Onset Date Resolution Date Notes Provider Name and Address Organization Details Recorded Time Disorder of kidney due to diabetes mellitus 008776287 Active Not Available [facility] 3 14:48:39 Cellulitis of foot 647140475 Active Not Available [facility] 3 14:48:39 Microcytic anemia 681986580 Active Not Available [facility] 3 14:48:39 Type 1 diabetes mellitus 80763502 Active 2021 Not Available [facility] 3 14:48:39 Hyperlipidemi a 04803539 Active 2015 Not Available [facility] 3 14:48:39 Essential hypertension 34454664 Active 2016 Not Available [facility] 3 14:48:40 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 Procedures Surgical History Date Name Laterality Status Provider Name and Address Organization Details Recorded Time 021 Most Recent Mammogram completed Not Available [facility] 04/30/2022 14:45:08 020 Most Recent Bone Density completed Not Available [facility] 04/30/2022 14:45:08 019 transplant of kidney completed Not Available [facility] 04/30/2022 14:45:09 019 parathyroidectomy completed Not Available [facility] 04/30/2022 14:45:09 019 Date of Last Pap Smear completed Not Available [facility] 04/30/2022 14:45:07 cholecystectomy completed Not Available [facility] 04/30/2022 14:45:09 Foot Surgery completed Not Available [facility] 04/30/2022 14:45:09 Foot Surgery completed Not Available [facility] 04/30/2022 14:45:09 Imaging Results Imaging Date Name Status LastModified by Organiz ation Details LastModified Time 01/14/2022 MAMMO, screening, digital, bilateral completed [id number] [facility] [address], [place], [address], 04/30/2022 14:53:37 Procedure Notes None recorded. Medical Equipment None Reported. Allergies Allergen ID Allergen Name Allergen Category Reaction Reaction Severity Criticality Documentation Date Start Date Code Code System Note Provider Name and Address Organization Details Recorded Time 88739 rosuvasta tin medicatio n muscle cramps Not available Not available 04/30/2022 28344 2 RxNorm Not Available [facility] 3 14:53:33 54986 Product containin g glucocort icoid (product) medicatio n Not available Not available Not available 04/30/2022 79151 6006 SNOMED have to be cauti ous takin g after kidne y trans plant Not Available [facility] 3 14:53:33 76392 codeine medicatio n nausea Not available Not available 04/30/2022 2670 RxNorm Not Available [facility] 3 14:53:33 78422 ampicilli n / sulbactam medicatio n Not available Not available Not available 04/30/2022 39966 48 RxNorm Not Available [facility] 3 14:53:33 Medications Name Sig Start Date Stop Date Status Note LastModified by Organization Details LastModified Time losartan 50 mg tablet Take 1 tablet every day by oral route for 90 days. 06/12 completed Not Available Not Available Not Available amoxicill in 500 mg capsule Take 1 capsule 3 times a day by oral route. 09/12 completed Not Available Not Available Not Available atorvasta tin 40 mg tablet Take 1 tablet every day by oral route. 04/19 completed Not Available Not Available Not Available Procrit 10,000 unit/mL injection solution 02/10 completed Not Available Not Available Not Available carvedilo l 25 mg tablet 09/12 completed Not Available Not Available Not Available carvedilo l 6.25 mg tablet Take 1 tablet twice a day by oral route. active Not Available Not Available No t Available doxycycli ne hyclate 100 mg capsule 06/12 completed Not Available Not Available Not Available carvedilo l 12.5 mg tablet 09/12 completed Not Available Not Available Not Available atorvasta tin 10 mg tablet Take 1 tablet every day by oral route for 90 days. active Not Available Not Available No t Available azithromy gera 250 mg tablet 07/29 completed Not Available Not Available Not Available cefpodoxi me 100 mg tablet active Not Available Not Available Not Available pravastat in 40 mg tablet 11/28 completed Not Available Not Available Not Available sulfameth oxazole 400 mg-trimet hoprim 80 mg tablet TAKE 1 TABLET BY MOUTH TWICE DAILY FOR 14 DAYS THEN TAKE 1 TABLET BY MOUTH DAILY active Not Available Not Available No t Available hydrocodo ne 5 mg-acetam inophen 325 mg tablet 08/18 completed Not Available Not Available Not Available fluconazo le 200 mg tablet TK 1 T PO ONCE WEEKLY FOR 3 WEEKS 08/09 completed Not Available Not Available Not Available phenazopy ridine 200 mg tablet 04/27 completed Not Available Not Available Not Available prednison e 5 mg tablet TAKE 1 TABLET BY MOUTH EVERY DAY active Not Available Not Available No t Available Lantus U-100 Insulin 100 unit/mL subcutane ous solution 01/06 completed Not Available Not Available Not Available metronida zole 500 mg tablet 01/12 completed Not Available Not Available Not Available ciproflox acin 250 mg tablet active Not Available Not Available No t Available amlodipin e 5 mg tablet active Not Available Not Available Not Available trimethop rim 100 mg tablet TAKE 1 TABLET BY MOUTH AT BEDTIME. START AFTER FINISHIN G COURSE OF BACTRIM active Not Available Not Available No t Available ciproflox acin 500 mg tablet active Not Available Not Available No t Available sulfameth oxazole 800 mg-trimet hoprim 160 mg tablet TK 1 T PO QHS 08/24 completed Not Available Not Available Not Available peg-elect rolyte solution 420 gram oral solution 04/27 completed Not Available Not Available Not Available aspirin 81 mg tablet,de layed release TAKE 1 TABLET BY MOUTH EVERY DAY active Not Available Not Available No t Available amoxicill in 500 mg tablet Take 1 tablet 3 times a day by oral route for 7 days. 06/27 completed Not Available Not Available Not Available carvedilo l 3.125 mg tablet Take 1 tablet twice a day by oral route for 90 days. 06/12 completed Not Available Not Available Not Available ketorolac 0.5 % eye drops INSTILL 1 DROP IN LEFT EYE FOUR TIMES DAILY active Not Available Not Available No t Available pravastat in 80 mg tablet TAKE 1 TABLET DAILY 02/07 completed Not Available Not Available Not Available prednisol one acetate 1 % eye drops,nida pension active Not Available Not Available Not Available magnesium oxide 400 mg (241.3 mg magnesium ) tablet TK 2 TS PO D 08/09 completed Not Available Not Available Not Available OneTouch Ultra Test strips TEST 4 TIMES A DAY active Not Available Not Available No t Available sodium bicarbona te 650 mg tablet 06/12 completed Not Available Not Available Not Available amlodipin e 10 mg tablet 09/12 completed Not Available Not Available Not Available cephalexi n 500 mg capsule 02/07 completed Not Available Not Available Not Available pantopraz ole 40 mg tablet,de layed release active Not Available Not Available Not Available calcitrio l 0.5 mcg capsule Take 1 capsule every day by oral route for 90 days. active Not Available Not Available No t Available Mag 64 64 mg tablet,de layed release TK 1 T PO BID 08/09 completed Not Available Not Available Not Available metronida zole 0.75 % topical cream APPLY TOPICALL Y TO FACE TWICE DAILY AFTER WASHING 06/12 completed Not Available Not Available Not Available losartan 25 mg tablet 02/07 completed Not Available Not Available Not Available Vitamin B-6 100 mg tablet TAKE 2 TABLETS BY MOUTH TWICE DAILY active Not Available Not Available No t Available omeprazol e 20 mg capsule,d elayed release TAKE 1 CAPSULE BY MOUTH EVERY DAY 09/12 completed Not Available Not Available Not Available acyclovir 200 mg capsule TK 1 C PO BID 08/09 completed Not Available Not Available Not Available furosemid e 20 mg tablet 02/10 completed Not Available Not Available Not Available Novolog U-100 Insulin aspart 100 unit/mL subcutane ous solution INJECT UNDER THE SKIN PER SLIDING SCALE DIRECTED 08/06 completed changed to Humolog Not Available Not Available Not Available insulin lispro (U-100) 100 unit/mL subcutane ous solution INJECT UNDER THE SKIN PER SLIDING SCALE DIRECTED active Not Available Not Available No t Available hydroxych loroquine 200 mg tablet 08/09 completed Not Available Not Available Not Available estradiol 0.01% (0.1 mg/gram) vaginal cream USE 1 GRAM VAGINALL Y WEEKLY active Not Available Not Available No t Available Vitamin D2 1,250 mcg (50,000 unit) capsule 02/07 completed Not Available Not Available Not Available losartan 100 mg tablet 04/19 completed Not Available Not Available Not Available tacrolimu s 1 mg capsule, immediate -release TK 7 CS PO BID 08/09 completed Not Available Not Available Not Available calcitrio l 0.25 mcg capsule 08/09 completed Not Available Not Available Not Available insulin syringe U-100 with needle 0.5 mL 31 gauge x 5/16 U UTD active Not Available Not Available Not Available Microlet Lancet use 4 times a day active Not Available Not Available No t Available oxycodone 5 mg tablet 08/09 completed Not Available Not Available Not Available iron 325 mg (65 mg iron) tablet Take 1 tablet every day by oral route. 02/07 completed Not Available Not Available Not Available moxifloxa gera 0.5 % eye drops active Not Available Not Available No t Available DOK Plus 8.6 mg-50 mg tablet TK 1-2 TS PO BID PRN 08/09 completed Not Available Not Available Not Available Crestor 40 mg tablet 04/19 completed Not Available Not Available Not Available mycopheno late sodium 360 mg tablet,de layed release TAKE 1 TABLET BY MOUTH TWICE DAILY 09/12 completed Not Available Not Available Not Available Sensipar 30 mg tablet 06/03 completed Not Available Not Available Not Available Sensipar 60 mg tablet 09/07 completed Not Available Not Available Not Available nitrofura ntoin monohydra te/macroc rystals 100 mg capsule 04/27 completed Not Available Not Available Not Available Tums 09/12 completed Not Available Not Available Not Available PreserVis ion AREDS 2020 active Not Available Not Available Not Avai lable Heliocare 2021 active Not Available Not Available Not Avai lable Aranesp 40 mcg/0.4 mL (in polysorba te) injection syringe active Not Available Not Available Not Available Lantus Solostar U-100 Insulin 100 unit/mL (3 mL) subcutane ous pen INJECT 23 UNITS UNDER THE SKIN IN THE MORNING DIRECTED active Not Available Not Available No t Available sevelamer carbonate 800 mg tablet 02/10 completed Not Available Not Available Not Available Humalog KwikPen (U-100) Insulin 100 unit/mL subcutane ous 09/14 completed Not Available Not Available Not Available cholecalc iferol (vitamin D3) 50 mcg (2,000 unit) tablet TAKE 1 TABLET BY MOUTH EVERY DAY 09/12 completed Not Available Not Available Not Available Vitamin D3 50 mcg (2,000 unit) capsule Take 1 capsule every day by oral route. 09/12 completed Not Available Not Available Not Available Dificid 200 mg tablet 06/12 completed Not Available Not Available Not Available Fluvirin 5101-2519 45 mcg (15 mcg x 3)/0.5 mL intramusc ular suspensio n ADM 0.5ML UTD active Not Available Not Available No t Available Afluria (PF) 45 mcg (15 mcg x 3)/0.5 mL IM syringe TO BE ADMINIST ERED BY PHARMACI ST FOR IMMUNIZA TION active Not Available Not Available No t Available Vitamin B12 02/07 completed Not Available Not Available Not Available Envarsus XR 1 mg tablet,ex tended release TAKE 4 TABLETS BY MOUTH DAILY active Not Available Not Available No t Available Envarsus XR 4 mg tablet,ex tended release 09/12 completed Not Available Not Available Not Available TechLITE Pen Needle 31 gauge x 5/16 U UTD ONCE D WITH SOLOSTAR active Not Available Not Available No t Available biotin 5,000 mcg disintegr ating tablet Take by oral route. 02/07 completed Not Available Not Available Not Available Fluzone Quad (PF) 60 mcg (15 mcg x 4)/0.5 mL IM syringe PHARMACI ST ADMINIST ERED IMMUNIZA TION ADMINIST ERED AT TIME OF DISPENSI NG 08/09 completed Not Available Not Available Not Available Vitals Date Recorded Body mass index (BMI) Body height Heart rate Body temperature Body weight Systolic blood pressure Diastolic blood pressure Provider Name and Address Organization Details Last Updated DateTime 1 22.5 kg/m2 177.8 cm 72 /min 97.7 [degF] 82888 g 124 mm[Hg] 62 mm[Hg] Not Available [facility] 3 14:46:58 Date Recorded Body mass index (BMI) Body height Heart rate Body temperature Body weight Systolic blood pressure Diastolic blood pressure Provider Name and Address Organization Details Last Updated DateTime 2 21.5 kg/m2 177.8 cm 84 /min 96.7 [degF] 01901.8 6 g 132 mm[Hg] 90 mm[Hg] Not Available [facility] 3 14:46:58 Date Recorded Body mass index (BMI) Body height Heart rate Body temperature Body weight Systolic blood pressure Diastolic blood pressure Provider Name and Address Organization Details Last Updated DateTime 2 22 kg/m2 177.8 cm 81 /min 98.8 [degF] 30507.6 3 g 108 mm[Hg] 64 mm[Hg] Not Available [facility] 3 14:46:58 Date Recorded Body height Body mass index (BMI) Body weight Body temperature Heart rate Systolic blood pressure Diastolic blood pressure Provider Name and Address Organization Details Last Updated DateTime 3 177.8 cm 22.4 kg/m2 47757.4 1 g 97.2 [degF] 80 /min 122 mm[Hg] 82 mm[Hg] [facility] 3 11:10:58 Date Recorded Body height Body mass index (BMI) Body weight Body temperature Heart rate Systolic blood pressure Diastolic blood pressure Provider Name and Address Organization Details Last Updated DateTime 3 177.8 cm 22.7 kg/m2 49699.5 9 g 97.4 [degF] 78 /min 142 mm[Hg] 80 mm[Hg] [facility] 3 11:54:36 Social History Question Answer Notes LastModified by Organizat ion Details LastModified Time Tobacco Smoking Status Never Smoker Susy carrizales [place] [facility] 11/11/2022 11:40:03 Do You Have An Advance Directive? No [id number] Information not available 04/30/2022 Do You Wear A Helmet When Biking? Yes Information not available 11/11/2022 What Is Your Level Of Caffeine Consumption? None [id number] Information not available 04/30/2022 In The 14 Days Before Symptom Onset, Have You Had Close Contact With A Laboratory-confi rmed COVID-19 While That Case Was Ill? No Information not available 11/11/2022 In The 14 Days Before Symptom Onset, Have You Had Close Contact With A Person Who Is Under Investigation For COVID-19 While That Person Was Ill? No Information not available 11/11/2022 What Type Of Diet Are You Following? SPECIFIC Low Carb [id number] Information not available 04/30/2022 Which Illicit Or Recreational Drugs Have You Used? None Information not available 11/11/2022 What Is The Highest Grade Or Level Of School You Have Completed Or The Highest Degree You Have Received? [id number] Information not available 11/11/2022 Have There Been Any Changes To Your Family Or Social Situation? No Information not available 11/11/2022 What Is The Fluoride Status Of Your Home? Unknown Information not available 11/11/2022 Are There Any Guns Present In Your Home? No Information not available 11/11/2022 Do You Use Insect Repellent Routinely? No Information not available 11/11/2022 Where Do You Live? SingleLevelHouse Information not available 11/11/2022 Do You Have A Medical Power Of Tactical Deception Plans Officer? No Information not available 11/11/2022 What Was The Date Of Your Most Recent Tobacco Screening? 11/11/2022 [email or web address] Information not available 11/11/2022 Do You Have Any Pets? Yes Information not available 11/11/2022 What Is Your Relationship Status? [id number] Information not available 04/30/2022 Do You Use Your Seat Belt Or Car Seat Routinely? Yes Information not available 11/11/2022 Do You Have Smoke And Carbon Monoxide Detectors In Your Home? Yes Information not available 11/11/2022 Are You Passively Exposed To Smoke? No Information not available 11/11/2022 Are There Any Smokers In Your House? No Information not available 11/11/2022 How Much Tobacco Do You Smoke? No [id number] Information not available 04/30/2022 What Types Of Sporting Activities Do You Participate In? None Information not available 11/11/2022 Do You Use Sunscreen Routinely? Yes Information not available 11/11/2022 Has Tobacco Cessation Counseling Been Provided? No Not Needed-ne hattie Smoked Information not available 11/11/2022 Have You Recently Traveled Abroad? No Information not available 11/11/2022 Do You Have Any Dietary Restrictions? No Information not available 11/11/2022 Sex: Female Functional Status Question Answer Note LastModified by Organizat ion Details LastModified Time Do you use any illicit or recreational drugs? No Information not available 11/11/2022 Do you or have you ever used any other forms of tobacco or nicotine? No Information not available 11/11/2022 What is your level of alcohol consumption? None [id number] Information not available 04/30/2022 Do you or have you ever used smokeless tobacco? 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 Never used electronic cigarettes Information not available 11/11/2022 What is your exercise level? Occasional [id number] Information not available 04/30/2022 Mental Status Question Answer Note LastModified by Organization D etails LastModified Time Do you feel stressed (tense, restless, nervous, or anxious, or unable to sleep at night)? [id number] Information not available 11/11/2022 Family History Relationship Description Onset Age of this Age Resolved Age Notes LastModified by Organization Details LastModified Time Father Myocardial infarction [id number] Not available 04/30/2022 14:45:10 Mother Hypertensive disorder [id number] Not available 04/30/2022 14:45:10 Medical History Condition Response NERVE DISEASE N BLINDNESS N RHEUMATIC FEVER N KIDNEY STONES N BLADDER PROBLEMS N MRSA N OTHER # 1 N POLIO N LUNG DISEASE/DISORDER N HISTORY OF DRUG ABUSE N RADIATION / CHEMOTHERAPY N COPD N Other # 2 N BLOOD DISEASES N EAR OR HEARING PROBLEMS N MUMPS N SHINGLES N BOWEL PROBLEMS N DEPRESSION (INCLUDING POST ) N STROKE/TIA N ULCERS N BENIGN PROSTATIC HYPERPLASIA N MEASLES N HYPOTENSION N MYOCARDIAL INFARCTION N OBESITY N GERD/NAUSEA N ANEURYSM N URINARY/BLADDER/KIDNEY PROBLEMS N CORONARY ARTERY DISEASE (CAD) N ADDICTION CONCERNS N Impotence N ENDOMETRIOSIS N USE OF BLOOD THINNERS N SKIN PROBLEMS N GASTROINTESTINAL DISORDER N PERIPHERAL VASCULAR DISEASE N MUSCLE,JOINT OR BONE PROBLEMS N GASTROINTESTINAL BLEEDING N BLOOD CLOTS N ASTHMA N CATARACTS N ERECTILE DYSFUNCTION N VARICOSITIES N GI PROBLEMS N Low Testosterone N INFERTILITY N AIDS/HIV N CHEMOTHERAPY / RADIATION N LIVER DISEASE N MALE HYPOGONADISM N HYPERTENSION Y Deficiency N TOURETTE'S N ANXIETY DISORDER N BLOOD TRANSFUSION N ANEMIA/BLOOD DISORDER Y CHRONIC EAR INFECTIONS N BRONCHITIS N TUBERCULOSIS N GLAUCOMA N FOOT PROBLEM N DIVERTICULITIS N SLEEP APNEA N CHICKENPOX N INFECTIOUS DISEASE N PROSTATE N HEART ARRHYTHMIA N INSOMNIA N HIGH CHOLESTEROL / HYPERLIPIDEMIA Y EYE PROBLEMS N HYPERTHYROIDISM N EDEMA N CHRONIC PAIN SYNDROME N HYPOTHYROIDISM N CONSTIPATION N CAROTID BLOCKAGE N BACK / NECK PROBLEMS N ATHEROSCLEROSIS N BREAST PROBLEMS N DIALYSIS N ECZEMA N OSTEOPOROSIS N ARTHRITIS N APPENDICITIS N DIABETES, TYPE Y BAD TEETH N ENT N HEARTBURN / REFLUX Y AUTISM SPECTRUM DISORDER (ASD) N HEPATITIS / LIVER DISEASE N GOUT N SLEEP DISORDER N ALZHEIMER'S DISEASE N Brain Problems N DEMENTIA N HERPES N SEIZURES/EPILEPSY N HEADACHES/MIGRAINES N VASCULAR DISEASE N PACEMAKER N Blood Disorder N DIZZINESS N HEART DISEASE/HEART PROBLEMS N KIDNEY DISEASE Y MULTIPLE SCLEROSIS N CANCER: SPECIFY N CARDIAC ARRHYTHMIA N ATRIAL FIBRILLATION N Gall Stones N PULMONARY EMBOLISM N AUTOIMMUNE DISEASE N Gynecological History Statement/Question Response Abnormal Pap N If Post Menopausal, Age at Menopause 52 Date of Last Colonoscopy Most Recent Bone Density 09/15/2019 Date of LMP Date of Last Pap Smear 06/08/2018 Current Control Method Menopause Most Recent Mammogram 10/17/2020 Breast Problems no Obstetrics History GPAL:G 2 P 2 0 0 2 Type Value Full Term 2 Living 2 Total 2 Immunizations Vaccine Type Date Status Note Provider Nam e and Address Organization Details Recorded Time influenza, unspecified formulation 3 completed RUSSELL Acosta, [place] - [facility] 12/12/2022 13:33:34 RSV, recombinant, protein subunit RSVpreF, adjuvant reconstituted, 0.5 mL, PF 3 completed Chitra Torres, RMA null, [facility] 12/23/2022 12:22:15 COVID-19, mRNA, LNP-S, PF, 30 mcg/0.3 mL dose 3 completed Chitra Yaagustina, RMA null, [place] [facility] 12/23/2022 12:22:24 COVID-19, mRNA, LNP-S, PF, 10 mcg/0.2 mL dose, jasen-sucrose 2 completed Not Available [facility] 04/30/2022 14:53:27 COVID-19, mRNA, LNP-S, PF, 10 mcg/0.2 mL dose, jasen-sucrose 1 completed Not Available [facility] 04/30/2022 14:53:27 Influenza, split virus, trivalent, preservative 2 completed Not Available [facility] 04/30/2022 14:53:27 COVID-19, mRNA, LNP-S, PF, 30 mcg/0.3 mL dose 2 completed Not Available [facility] 04/30/2022 14:53:27 Influenza, split virus, trivalent, preservative 5 completed Not Available [facility] 04/30/2022 14:53:27 Influenza, split virus, quadrivalent, PF 6 completed Not Available [facility] 04/30/2022 14:53:27 Influenza, split virus, quadrivalent, PF 8 [id number]|2024-07-14 00:51:00|2024-07-14 00:51:00|XMS_ITS|BKG DARAYMONON|External Medical Summaries|[id number]|" Encounter Summary Created on: July 14, 2024 Dot Dykes : 1960 Sex: Female Author Organization [facility] Address [address] [place] [address] Care Team Providers Care Business Employment Specialist Name Role Phone Carlos De Santiago MD Primary Care Provider + [phone] Unknown, Notinfile Primary Care Provider Unavail able Carlos De Santiago MD Unavailable [phone] Leon Reynaga MD PhD Unavailable Angel Swain MD Unavailable [phone] Wilson Plata RN Unavailable Teean Perez RN Unavailable [phone] Wilson Plata RN Unavailable Carlos De Santiago MD Primary Care Provider + [phone] Marisabel Glez RN Unavailable [phone] Sam Paredes MD Unavailable [phone] Nikita Diallo MD Unavailable [phone] Jocelin Sanchez MD Unavailable [phone] Carlos De Santiago MD Primary Care Provider + [phone] Lev Ponce MD Unavailable [phone] Encounter Details Date Type Department Care Team (Late st Contact Info) Description 02/28/2019 Telephone [facility] Radiology [address] [place] [address] Deloris West, RN Social History Tobacco Use Types Packs/Day Years Used Date Smoking Tobacco: Never Smokeless Tobacco: Never Alcohol Use Standard Drinks/Week Comments No 0 (1 standard drink = 0.6 oz pur e alcohol) Social Connection and Isolation Panel [NHANES] A nswer Date Recorded Frequency of Communication w ith Friends and Family Three times a week 01/19/2019 Frequency of Social Gatherin gs with Friends and Family Three times a week 01/19/2019 Attends Bahai Services 1 to 4 times per year 01/19/2019 Active Member of Clubs or Organizations No 01/19/2019 Attends Club or Organization Meetings Never 01/19/2019 Marital Status 01/19/2019 Overall Financial Resource Strain (CARDIA) Answe r Date Recorded Difficulty of Paying Living Expenses Not hard at all 01/19/2019 Hunger Vital Sign Answer Date Recorded Worried About Running Out of Food in the Last Ye ar Never true 01/19/2019 Ran Out of Food in the Last Year Never true 01/19/2019 PRAPARE - Transportation Answer Date Re corded Lack of Transportation (Medical) No 01/19/2019 Lack of Transportation (Non-Medical) No 01/19/2019 Comments No Sex and Gender Information Value Date Recorded Sex Assigned at Not on file 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 difficile suspected 08/06/2023 08/06/202308/05 11:09 AM CDT Norovirus suspected 08/10/2023 08/10/2023 08/18/19 24 2:25 PM CDT COVID: Suspected 03/09/2024 03/09/2024 03/09/2024 4:22 PM MILITARY SCIENCE INSTRUCTOR documented as of this encounter Care Teams Business Employment Specialist Relationship Specialty Start Date End Date Carlos De Santiago MD PCP - General Internal Medicine 03/17/18 02/12/22 Unknown, Notinfile PCP - General 02/13/22 03/05/22 Carlos De Santiago MD [address] [address] PCP - General Internal Medicine 03/06/22 06/22/24 Carlos De Santiago MD [address] [place] [address] PCP - General Internal Medicine 06/23/24 Carlos De Santiago MD Internal Medicine 02/13/22 06/22/24 Leon Reynaga MD PhD Fellow Endocrinology Diabetes & Metabolism 09/15/18 [place] [address] [facility] [address] [place] [address] Consulting Physician Nephrology 01/07/19 03/08/24 Wilson Plata, RN [address]90 [facility] [address] [place] [address] Sales Representative Door To Door 01/19/19 Teena Perez, RN [address] [address] Sales Representative Door To Door Sales Representative Door To Door 03/13/20 Wilson Plata, RN [address] [address] Secondary Kidney Coordinator Transplant 03/15/20 Marisabel Glez RN 4590 [facility] [address] [place] [address] Sales Representative Door To Door 02/29/24 Sam Paredes MD 4901 [facility] [address] [place] [address] Diet Attendant Dermatology 03/08/24 Nikita Diallo MD [address] [place] [address] [address] [place] [address] Referring Physician Nephrology 03/09/24 Jocelin Sanchez MD [address] [place] [address] Obstetrics and Gynecology 05/03/24 Lev Ponce MD [address] [place] [address] [address], [place] [address] Milker Machine Cardiology 06/23/24 documented as of this encounter "
--- OUTSIDE RECORDS SUMMARY | 2024-07-14 00:51 | XMS_ITS ---
Author Organization [facility] Address [address] [place] [address] Care Team Providers Care Land Developer Name Role Phone Leon Reynaga MD PhD Unavailable Teena Perez RN Unavailable Wilson Plata RN Unavailable Marisabel Glez RN Unavailable Sam Paredes MD Unavailable Nikita Diallo MD Unavailable Jocelin Sanchez MD Unavailable [phone] Carlos De Santiago MD Primary Care Provider + [phone] Lev Ponce MD Unavailable [phone] Transplant Episode Kidney Candidate [facility] ([place], [place]) - [facility] Evaluation began on 03/09/2024 Marked as Active on 03/09/2024 Reason: Evaluation - Standard Kidney CoordinatorMarisabel Glez RN Fax: N/A Email: N/A Scores Score Value Updated Exceptions/Reas ons CPRA Not available EPTS (Calc) 67 07/14/2024 Retransplant Diagnosis Organ Primary Contributory Kidney Diabetes Mellitus - Type I Care Team Name Role Phone Fax Email Marisabel Glez RN Kidney Coordinator [phone] N/A N/A Nikita Diallo MD Referring Physician [phone] N/A [place] Primary Data Security Consultant N/A N/A N/A Ximena Jaffe Mamma Logist [phone] N/A N/A Events Pre-Transplant Referred: 02/29/2024 Evaluation began: 03/09/2024
--- OUTSIDE RECORDS SUMMARY | 2024-07-14 00:51 | XMS_ITS | Referral Summary ---
Author Organization [facility] Address [address] [place] [address] Care Team Providers Care [employer]oples[employer] Financials Name Role Phone Leon Reynaga MD PhD Unavailable Teena Perez RN Unavailable Wilson Plata RN Unavailable Marisabel Glez RN Unavailable Sam Paredes MD Unavailable Nikita Diallo MD Unavailable Jocelin Sanchez MD Unavailable Carlos De Santiago MD Primary Care Provider [phone] Lev Ponce MD Unavailable Encounters Date Type Department Care Team Description 07/06/2024 Documentation [facility] Transplant Kidney [address] [facility] [address] Mailstop [phone] [place], [place] [id number] Marisabel Glez RN Kidney Eval 07/05/2024 8:00 AM CDT Office Visit [facility] Cardiology [address] [place] [address] Gabby Pepe NP Essential hypertension (Primary Dx); Chronic rejection of kidney transplant 06/24/2024 Documentation [facility] Transplant Kidney [address] [facility] [address] Mailstop [phone] [place] [address] Dot Mesa 06/23/2024 Documentation [facility] Transplant Kidney [address] [facility] [address] Mailstop [phone] [place] [address] Dot [place] Kidney Eval 06/23/2024 Telephone [facility] Cardiology [address] [facility] [address] [place] [address] Lev Ponce MD 06/23/2024 Documentation [facility] Transplant Kidney [address] [facility] [address] Mailstop [id number] [place] [address] Marisabel Glez RN Kidney Eval 06/20/2024 Orders Only [facility] Nephrology [facility] access [facility] 5th [place] [address] [place] [address] Christianne Clemente MD 06/10/2024 10:50 AM CDT Office Visit [facility]ph[facility] [address] 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 5th [place] [address] [place] [address] Cisco Alexandra MD 05/24/2024 Documentation [facility] Transplant Kidney [address] [facility] [address] Mailstop [phone] [place] [address] Dot [place] 05/23/2024 Documentation [facility] Transplant Kidney [address] [facility] [address] Mailstop [phone] [place] [address] Marisabel Glez RN Kidney Eval 05/23/2024 Telephone [facility] Transplant Kidney [address] [facility] [address] Mailstop [phone] [place] [address] Marisabel Glez RN Kidney Eval (Clinic follow up letter) 05/17/2024 8:45 AM CDT Lab [facility] [address] [place] [address] Pre-transplant evaluation for kidney transplant; End stage renal disease (HCC) 05/17/2024 8:45 AM CDT - 05/17/2024 11:59 PM CDT Hospital Encounter [facility] [address] [place] [address] Pre-transplant evaluation for kidney transplant; End stage renal disease (HCC) Discharge Disposition: Discharge to home or self care 05/17/2024 8:44 AM CDT - 05/17/2024 11:59 PM CDT Hospital Encounter [facility] [address] [place] [address] Pre-transplant evaluation for kidney transplant; End stage renal disease (HCC) Discharge Disposition: Discharge to home or self care 05/17/2024 8:44 AM CDT - 05/17/2024 11:59 PM CDT Hospital Encounter [facility] [address] [place] [address] Pre-transplant evaluation for kidney transplant; End stage renal disease (HCC) Discharge Disposition: Discharge to home or self care 05/17/2024 1:30 PM CDT Office Visit [facility] [address] [facility] 5th [place] [address] [place] [address] Natividad Meza MD Pre-transplant evaluation for kidney transplant (Primary Dx); Hypertension, unspecified type; Dyslipidemia; Renal osteodystrophy; Stage 5 chronic kidney disease (HCC); Secondary hyperparathyroidism of renal origin 05/17/2024 8:35 AM CDT - 05/17/2024 11:59 PM CDT Hospital Encounter [facility] [address] [place] [address] Dania Mcclure MD Pre-transplant evaluation for kidney transplant; End stage renal disease (HCC) Discharge Disposition: Discharge to home or self care 05/17/2024 2:00 PM CDT Social Work [facility] [address] [facility], 8th Floor, [place] [address] 05/11/2024 3:00 PM CDT Office Visit [facility] Endocrinology Metabolism and Lipid Critical access hospital1 [facility] 13th [place] [address] [place] [address] Vickie Solorzano MD Type 1 diabetes mellitus with diabetic chronic kidney disease, unspecified CKD stage (HCC) (Primary Dx); S/P parathyroidectomy; Dyslipidemia due to type 1 diabetes mellitus ([facility]/HCC) (HCC) 05/10/2024 9:30 AM CDT Documentation [facility] [place] [address] [facility], 8th Floor, [place] [address] Ximena Jaffe 05/03/2024 Documentation [facility] Transplant Kidney [address] [facility] [address] Mailstop [phone] [place] [address] Marisabel Glez, RN Kidney Eval 05/02/2024 Documentation [facility] Transplant Kidney [address] [facility] [address] Mailstop [phone] [place] [address] Marisabel Glez, RN Kidney Eval 04/21/2024 Telephone [facility] Transplant Kidney [address] [facility] [address] Mailstop [id number] [place] [address] Teena Perez RN 04/19/2024 Orders Only [facility] [address] [facility] 5th [place] [address] [place] [address] Cisco Alexandra MD 04/19/2024 Documentation [facility] Transplant Kidney [address] [facility] [address] Mailstop [id number] [place] [address] Marisabel Glez, RN Kidney Eval from Last 3 Months Allergies Active Allergy Reactions Criticality Noted Date [...] Device 11 04/18/19 20 Active blood-glucose transmitter (Dexcom G6 Transmitter) deviceIndicatio ns:Type 1 diabetes mellitus [...] be different from the original. LAB: [facility] ([address], [facility] [address]) P [phone]; F [phone] SO MONTHLY: FK, BK, UPE (06-16-2024); q3 [...] 9.4g/dL - Total of 2units PRBCs given (06/02 and 06/03) Assessment & Plan (06/05/2021 5:13 PM CDT): Chronic anemia baseline 8.0 - 9.0. - Hgb in 9.4g/dL - Total of 2units PRBCs given (06/02 and 06/03) Assessment & Plan (06/01/2021 9:44 AM CDT): Chronic anemia baseline 8.0 - 9.0. - Hgb in 7's during this admission - Per Renal note, Hgb ideally above 9.0 for biopsy 4/6. Plan to transfuse 4/4 and/or 4/5. Encounter for aftercare following kidney transpl ant 01/19/2019 Assessment & Plan (01/20/2019 2:21 PM MARKET RESEARCH CONSULTANT): Cr downtrending, UOP improving -Calcitrol added d/t decreased calcium levels as well as oscal Assessment & Plan (01/19/2019 2:35 PM MARKET RESEARCH CONSULTANT): Cr downtrending, UOP improving -Calcitrol added d/t decreased calcium levels Encounter for long-term (cur rent) use of high-risk medication 01/19/2019 Assessment & Plan (01/20/2019 2:22 PM MARKET RESEARCH CONSULTANT): -Prograf increased to 6 mg BID, level undetectable after receiving 4 mg last night -continue Prednisone taper -Myfortic 720 mg BID; when Prograf trough is between 7-10, will decrease to 360 mg BID Assessment & Plan (01/19/2019 2:36 PM MARKET RESEARCH CONSULTANT): -Will start Prograf 4 mg BID -continue [...] ) 05/31/2018 Coronary artery disease invo lving northway coronary artery of northway heart without angina pectoris 03/09/2017 Assessment & [...] 06/05 Assessment & Plan (01/20/2019 2:22 PM MARKET RESEARCH CONSULTANT): Controlled, continue to monitor Assessment & Plan (01/19/2019 2:37 PM MARKET RESEARCH CONSULTANT): Controlled, continue to monitor Mitral valve insufficiency [...] EF 55-60%. G1DD -continue coreg Diabetic neuropathy ([facility]/HCC) 07/16/2013 Overview (06/07/2016): Diabetic neuropathy Aortic valve [...] consulted Assessment & Plan (01/20/2019 2:22 PM MARKET RESEARCH CONSULTANT): Continue Lantus and SSI, patient bridged with NPH d/t likely steroid induced hyperglycemia Assessment & Plan (01/19/2019 2:37 PM MARKET RESEARCH CONSULTANT): Continue Lantus and SSI, patient bridged with [...] - recommended patient establish care with an captain fishing vessel especially with possible transplant in future - discharge on lantus 18 units daily, humalog 3 units with LDSSI with meals Resolved Problems Problem Noted Date Diagnosed Date Resolved Date Acute kidney failure 11/19/2023 024 Adnexal cyst 05/29/2021 06/05/2021 Assessment & Plan (06/05/2021 5:15 PM CDT): Interval increase of previously known cyst noted on CT AP 05/28/21. Patient has have follow up TVUS with [employer], already has appt in July 2021 Assessment & Plan (05/29/2021 10:48 AM CDT): Interval increase of previously known cyst noted on CT AP 05/28/21. - pt to have follow up TVUS with [employer], already has appt in July 2021 Kidney replaced by transplant 09/23/2019 11/19/2023 Assessment & Plan (06/06/2021 2:46 PM CDT): Continue home prednisone, tacrolimus. Daily tacro trough levels (0400) - /6 Tacrolimus level 6.4ng/mL>>4/7 12ng/mL. - Discussed with [...] 01/20/201912/31 Assessment & Plan (01/20/2019 2:23 PM MARKET RESEARCH CONSULTANT): -Patient to receive 1 unit PRBC today -Patient also to receive IV iron End stage renal disease 12/13/201801/01 Overview (12/13/2018): Added automatically from request for surgery [id number] Hyperparathyroidism 07/29/2018 01/20/20 20 Overview (08/24/2018): DIAGNOSIS: End stage renal disease Secondary hyperparathyroidism PROCEDURE PERFORMED:(Ameya 08/06/18) 4 gland parathyroid exploration with subtotal excision Assessment & Plan (08/14/2018 5:42 PM CDT): S/p subtotal parathyroidectomy Pre-transplant evaluation fo r kidney transplant 05/31/2018 01/20/2020 Hypotension 02/21/2014 09/16/2018 Overview (06/05/2016): Symptomatic hypotension Immunizations Immunization Administration Dates Next Due COVID-19 [...] nt, Subunit, Adjuvanted, PF, IM (Arexvy) 12/22/2022 Social History Tobacco Use Types Packs/Day Years Used Date Smoking Tobacco: Never Smokeless Tobacco: Never Tobacco Cessation:Counseling Given: Not Answered Alcohol Use Standard Drinks/Week Comments No 0 (1 standard drink = 0.6 oz pur e alcohol) [facility] [employer] Answer Date Recorded In the past 12 months has Mark[employer], Q-Sensei, untapt, or water Falcon App threatened to shut off services in your [...] 05/24/2024 How often do you attend chur or hoahaoism services? More than 4 times per year 05/24/2024 Do you belong to any clubs o r organizations such as temple groups, unions, fraternal or athletic groups, or [...] any time in the past 12 m [facility], were you homeless or living in a skilled nursing (including now)? No 05/24/2024 Personal Safety Answer Date Recorded Have you ever been in or are you currently in a harmful physical or emotional relationship or is someone making you feel afraid or unsafe? 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 Not on file Not on file Not on file Last Filed Vital Signs Vital Sign Reading Time Taken Comments Blood Pressure 160/100 07/05/2024 7:49 AM CDT Pulse 76 07/05/2024 7:49 AM CDT Temperature 36.6 C (97.9 F) 06/10/2024 10:47 AM CDT Respiratory Rate 18 03/22/2024 9:49 AM MARKET RESEARCH CONSULTANT Oxygen Saturation 99% 07/05/2024 7:49 AM CDT Inhaled Oxygen Concentration - - Weight 66.2 kg (146 lb) 07/05/2024 7:49 AM CDT Height 177.8 cm (5' 10 ) 07/05/2024 7:49 AM CDT Body Mass Index 20.95 07/05/2024 7:49 AM CDT Plan of Treatment Not on file Medical Devices Explanted Type Area Peoplesoft Consultant Device Identifier Shelf Expiration Date Model / Serial / Lot Circon-Surgite k [id number] 6fr 20cm 100cm 1 Step Insert Push Catheter Chester Suture - [id number] Implanted:Qty: 1 on 01/18/2019 by Linda Beaulieu MD PhD at [facility] Explanted:Qty: 1 on 02/21/2019 by Chapo Benavidez, FARA Stent Right: Ureter Pintley 06/25/2023 [id number] / / [id number] Description:Transplanted ure ter Procedures Procedure Name Priority Date/Time Associated Diagnosis Comments POCT URINALYSIS DIPSTICK Routine 06/10/2024 11:43 AM CDT Encounter for aftercare following kidney transplant TACROLIMUS, HIGHLY SENSITIVE, LC/MS/MS Routine 06/08/2024 8:07 AM CDT RENAL FUNCTION PANEL Routine 06/08/2024 8:07 AM CDT PROTEIN / CREATININE RATIO, URINE, RANDOM Routine 06/08/2024 8:07 AM CDT CBC WITH AUTO DIFFERENTIAL Routine 06/08/2024 8:07 AM CDT COPY(IES) SENT TO: Routine 06/08/2024 8: 07 AM CDT BK VIRUS, DNA, QUANTITATIVE Routine 06/08/2024 8:07 AM CDT XR ORTHOPANTOGRAM/PANOR EX Schedule Routine, Read Routine (OP Routine) 05/17/2024 9:50 AM CDT Pre-transplant evaluation for kidney transplant End stage renal disease (HCC) CT ABDOMEN PELVIS WO CONTRAST Schedule Routine, Read Routine (OP Routine) 05/17/2024 9:35 AM CDT Pre-transplant evaluation for kidney transplant End stage renal disease (HCC) ECG 12-LEAD Routine 05/17/2024 8:54 AM CDT Pre-transplant evaluation for kidney transplant End stage renal disease (HCC) XR CHEST PA LATERAL 2 VIEWS Schedule Routine, Read Routine (OP Routine) 05/17/2024 8:50 AM CDT Pre-transplant evaluation for kidney transplant End stage renal disease (HCC) EGFR Routine 05/17/2024 8:49 AM CDT Pre-transplant evaluation for kidney transplant End stage renal disease (HCC) URINALYSIS, MICROSCOPIC ONLY Routine 05/17/2024 8:49 AM CDT Pre-transplant evaluation for kidney transplant End stage renal disease (HCC) COMPREHENSIVE METABOLIC PANEL Routine 05/17/2024 8:49 AM CDT Pre-transplant evaluation for kidney transplant End stage renal disease (HCC) CREAT [id number]|2024-07-14 00:51:00|2024-07-14 00:50:00|XMS_ITS|BKG DAEMON|External Medical Summaries|[id number]|" Patient Health Record Created on: July 14, 2024 Dto Dykes : 1960 Sex: Female Author Organization [facility] Address [address] [place], [place] [address] Care Team Providers Care Peoples[employer] Financials Name Role Phone Carlos De Santiago Primary Care Provider Unavailabl Angel Guerrero Unavailable [phone] Allergies Allergen (clinical drug ingredient) Drug/Non Drug Allergy documented on EMR Reaction Allergy Type Onset Date Status codeine codeine Unknown Drug Allergy Active Reason For Referral No Information Medications Medication SIG (Take, Route, Frequency, Duration) Notes Start Date End Date Status Lantus Subcutaneous 24 UNIT S IN THE AM Active Carvedilol 3.125 MG 2 TABLETS Orally onc e a day Active Losartan Potassium 50 MG 2 tablets Orall y Once a day Active Procrit 59387 UNIT/ML 1ML SQ weekly for 30 days Active Easy Touch Hypodermic Needle 27G X 1/2 as directed weekly for 30 days 01/29/2018 Active Kalpesh Aspirin EC Low Dose 81 MG 1 tablet Orally Once a day A ctive Calcium Carbonate 1250 (500 Ca) MG 2 tablets Orally BID for 90 days 08/23/2018 Active Pravastatin Sodium 80 MG 1 tablet Orally Once a day Active Calcitriol 0.5 MCG 1 capsule Orally Onc e a day for 90 days Active Lasix 20 MG 1 tablet Orally Once a day 08/23/2018 Active Calcium Carbonate 1250 (500 Ca) MG 4 tablets Orally three times a day for 30 day(s) 08/23/2018 Active Sevelamer HCl 800 MG 1 tablet with meals Orally Three times a day Active HumaLOG 100 UNIT/ML as directed Subcutan eous 3 units prior to meal if over 120 Active Problems Problem Type SNOMED Code ICD Code Onset Dates Problem Status W/U Status Risk Notes Problem Hypercalcemia (56771320) Hypercalcemia (E83.52) Active confirmed resolved following the parathryroidecto my. Problem Chronic kidney disease stage 4 (201304955) Chronic kidney disease, stage 4 (severe) (N18.4) Active confirmed Problem Hypertensive disorder (23502740) Hypertension (I10) Active confirmed bp stable Problem 24109833 Hyperlipidemia (E78.5) Active confirmed on pravachol Problem Hypocalcemia (2693272) Hypocalcemia (E83.51) Active confirmed Ca is down to 6.1. resume CaCO3 and calcitriol at lower doses. Problem 60371902 Congestive heart failure (I50.9) Active confirmed will reduce lasix to 20 mg once daily. Problem 165628063 Chronic kidney disease, stage IV (severe) (N18.4) Active confirmed creat remains high at 5.8. Pt may be receiving a transplant from her son within 4-5 weeks. Problem 11899061 Hyperparathyroi dism (E21.3) Active confirmed on sensipar. Problem Type I diabetes mellitus without complication (767531599) Type 1 diabetes mellitus without complications (E10.9) Active confirmed on insulin Problem Secondary hyperparathyroidi sm (47308299) Secondary hyperparathyroi dism, not elsewhere classified (E21.1) Active confirmed Problem 122988645 DM w/o complication type I (E10.9) Active confirmed on insulin Problem 13053652 Hyperparathyroi dism , secondary, non-renal (E21.1) Active confirmed pt is now s/p parathroidectomy , as advised by the transplant office. Problem Hyperlipidaemia (89734097) Hyperlipidemia, unspecified hyperlipidemia type (E78.5) Active confirmed on pravachol Problem Anemia of chronic renal failure (65008042) Anemia associated with chronic renal failure (D63.1) Active confirmed hgb is up to 9.1. Continue procrit. Problem Essential hypertension (23589498) Essential (primary) hypertension (I10) Active confirmed bp is stable Plan Of Treatment Pending Test Test Name Order Date Ultrasound : Kidneys, bilate ral and urinary bladder with post void residual 04/28/2011 Ultrasound : Abdomen ( transplanted kidn ey and ureter, Left 02/21/2013 Iron and TIBC 01/12/2017 Complement C4, Serum 04/28/2011 Protein Total, Qn, 24-Hr Urine 2 Creatine+Creatinine, 24-Hr Ur 04/28/2011 Complement C3, Serum 04/28/2011 PTH, Intact 04/21/2016 PTH, Intact 11/12/2015 PTH, Intact 01/25/2018 PTH, Intact 05/03/2018 Vitamin D, 25-Hydroxy 04/21/2016 KALEIGH w/Reflex if Positive 04/28/2011 Protein Elec + Interp, Serum 04/28/2011 Protein Elec + Interp, Serum 01/11/2015 Comp. Metabolic Panel (14) 10/29/2011 random urine protein to creatinine ratio 01/11/2015 CBC (H/H, RBC, INDICES, WBC, PLT) 2011 URINALYSIS, COMPLETE W/REFLEX TO CULTURE 10/19/2017 URINALYSIS REFLEX 01/11/2015 URINALYSIS, COMPLETE 04/28/2011 SED RATE BY MODIFIED WESTERGREN 01/12/20 15 SED RATE BY MODIFIED WESTERGREN 04/28/19 12 LIPID PANEL 09/15/2016 HEMOGLOBIN A1C 04/21/2016 BASIC METABOLIC PANEL 06/25/2015 BASIC METABOLIC PANEL 10/29/2011 BASIC METABOLIC PANEL 12/06/2018 PHOSPHATE ( PHOSPHORUS) 08/23/2018 PHOSPHATE ( PHOSPHORUS) 09/15/2016 PHOSPHATE ( PHOSPHORUS) 11/12/2015 PHOSPHATE ( PHOSPHORUS) 10/19/2017 PHOSPHATE ( PHOSPHORUS) 01/12/2017 PTH, INTACT AND CALCIUM 06/15/2017 PTH, INTACT AND CALCIUM 10/19/2017 PTH, INTACT AND CALCIUM 09/15/2016 IRON AND TOTAL IRON BINDING CAPACITY Iron and TIBC 01/29/2018 Iron and TIBC 09/22/2018 Hemoglobin A1C 10/29/2011 Ferritin, Serum 09/22/2018 Ferritin, Serum 01/29/2018 PTH, Intact 01/12/2017 Comp. Metabolic Panel (14) 10/19/2017 Transferrin Saturation 01/29/2018 Transferrin Saturation 09/22/2018 random urine for protein to creatine rat io 11/12/2015 Comp Metabolic Panel 06/25/2015 Comp Metabolic Panel 01/11/2015 Comp Metabolic Panel 01/12/2017 Comp Metabolic Panel 04/21/2016 Comp Metabolic Panel 06/15/2017 Comp Metabolic Panel 10/04/2018 Comp Metabolic Panel 09/15/2016 Comp Metabolic Panel 08/23/2018 Phosphorous 05/03/2018 Phosphorous 01/25/2018 CBC With Auto Diff 10/19/2017 CBC With Auto Diff 08/23/2018 CBC With Auto Diff 09/15/2016 CBC With Auto Diff 10/04/2018 CBC With Auto Diff 11/12/2015 CBC With Auto Diff 01/12/2017 CBC With Auto Diff 06/15/2017 CBC With Auto Diff 04/21/2016 CBC With Auto Diff 01/11/2015 CBC With Auto Diff 06/25/2015 Iron with Transferrin Saturation 015 Comp Metabolic Panel 02/21/2013 CBC With Auto Diff 02/21/2013 Urinalysis Reflex to Culture 02/21/2013 Comp Metabolic Panel 11/12/2015 Basic Metabolic Panel (7) 01/29/2018 Basic Metabolic Panel (7) 09/22/2018 Urinalysis Reflex to Culture 06/15/2017 Hgb+Hct 09/22/2018 Hgb+Hct 01/29/2018 Future Test Test Name Order Date random urine protein to creatinine ratio 08/15/2011 CBC (H/H, RBC, INDICES, WBC, PLT) 2011 Comp. Metabolic Panel (14) 08/15/2011 Insurance Providers Payer Name Payer Address Payer Phone Subscriber Number Group Number Insured Name Patient Relationship to Insured Coverage Start Date Coverage End Date [facility] [address] [place] [address] [id number] Dot Dykes Self - patient is the insured Medical (General) History Medical History History ICD Code She is known to have diabete s requiring insulin. She has had elevated hemoglobin A1cs in the past. She has had periods of poor blood pressure control in the past also. She is known to have hyperlipidemia. She has insulin-dependent diabetes mellitus "
[2024-07-14 07:30] VITALS: BP 149/79; PULSE 77; RESP 18; TEMP 36.7; O2SAT 100; BMI 21.5
--- NOTE | 2024-07-14 07:44 | SUR.PREOP ---
Patients blood sugar is 126 via Continuous glucose monitor.
[2024-07-14] MEDS: LACTATED RINGERS 1,000 ML 150 ML IV CONT (07:51)
--- NOTE | 2024-07-14 07:57 | P.PNAN_ITS ---
Anes - Initial Pre Proc Eval Procedure: Operation Date: 07/14/24 08:30 Proposed Procedures p Screening Colonoscopy - Chaim Reardon MD Date/Time: 07/14/24 07:57 Surgeon: Chaim Reardon MD Pre Op Diagnosis: Hx of polyps Patient Data Age: 64 Gender: F Height: 1.75 m Weight: 66.1 kg Last Vital Signs Temp 36.7 C 07/14/24 07:30 Pulse 77 07/14/24 07:30 Resp 18 07/14/24 07:30 BP 149/79 H 07/14/24 07:30 Pulse Ox 100 07/14/24 07:30 O2 Del Method Room Air 07/14/24 07:30 Allergies Allergy/AdvReac Type Severity Reaction Status Date / Time ampicillin Allergy Unknown RAPID HR Verified 07/14/24 07:39 codeine Allergy Unknown Nausea Verified 07/14/24 07:39 sulbactam Allergy Unknown RAPID HR Verified 07/14/24 07:39 Home Medications Medication Instructions Recorded Confirmed Type aspirin 81 mg tablet,delayed 81 mg PO DAILY 11/06/22 07/14/24 History release atorvastatin 20 mg tablet 20 mg PO DAILY 11/06/22 07/14/24 History calcitriol 0.5 mcg capsule 0.5 mcg PO DAILY 11/06/22 07/14/24 History carvedilol 6.25 mg tablet 6.25 mg PO Q12H 11/06/22 07/14/24 History insulin lispro 100 unit/mL 1 sliding scale dose subcut 11/06/22 07/14/24 History subcutaneous cartridge (Humalog USEASDIRECTD U-100 Insulin) pantoprazole 40 mg tablet,delayed 40 mg PO QAM 11/06/22 07/14/24 History release prednisone 5 mg tablet 5 mg PO DIRECTED 11/06/22 07/14/24 History tacrolimus 4 mg tablet,extended 4 mg PO DAILY 11/06/22 07/14/24 History release 24 hr (Envarsus XR) amlodipine 5 mg tablet 5 mg PO DAILY 07/06/24 07/14/24 History lisinopril 5 mg tablet 5 mg PO DAILY 07/06/24 07/14/24 History sodium bicarbonate 650 mg tablet 650 mg PO DAILY 07/06/24 07/14/24 History sulfamethoxazole 400 1 tablet PO DAILY 07/06/24 07/14/24 History mg-trimethoprim 80 mg tablet (Bactrim) vitamin B6-vitamin E-magnesium 1 tablet PO BID 07/06/24 07/14/24 History tablet Patient hx anesthesia problems: none Family hx anesthesia problems: none Results Review: All pre-operative results and documents have been reviewed as part of the pre- operative evaluation. 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 Hx of cholecystectomy H/O parathyroidectomy Family History Family History Mother Hypertension Cerebrovascular accident Sibling Family history of Parkinson's disease Father Family history of congestive heart failure Acute myocardial infarction Other Family history of cardiovascular disease Social History Social History Smoking status: Never smoker Alcohol intake: never Substance use: never Substance use type: does not use Do You Feel Safe in your Home?: Yes Lack of Transportation: No Lack of Food: Never True Current Housing: I Have Housing Concerned About Future Housing: No Difficulty Paying Gas/Electric Bills: No Difficulty Paying for Meds: No Currently Unemployed: No Education: Trade/Vocational Certificate Difficulty w/ Childcare or Family Care: No Living arrangements: with family Occupation/Education: retired Gender identity (if verbalized by the patient): Female Sexual Orientation (if Verbalized by the Patient): Straight or Heterosexual Spiritual care concerns: No Anes - Eval Final PreProcedure Day of Procedure 07/14/24 07:57 Patient weight: normal Heart: regular rate and rhythm Lungs: clear to auscultation Airway: Mallampati scale class II Neurological: alert and oriented Last oral intake: >/= 8 hours ASA classification: IV Emergent: no Anesthetic plan: proceed Anesthesia type and monitoring: general GIVS and standard monitoring Results Review: All pre-operative results and documents have been reviewed as part of the pre- operative evaluation. Informed Consent: The patient's anesthetic plan and its attendant risks and benefits were discussed with the patient/family/POA. Questions were solicited and answers provided to the satisfaction of the patient/family/POA.
--- NOTE | 2024-07-14 08:12 | PM.HPGS ---
History of Present Illness History of Present Illness Consent: Risks, benefits, and alternatives have been discussed and questions answered. Patient agrees to proceed with procedure. 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 Hx of cholecystectomy H/O parathyroidectomy Family History Family History Mother Hypertension Cerebrovascular accident Sibling Family history of Parkinson's disease Father Family history of congestive heart failure Acute myocardial infarction Other Family history of cardiovascular disease Social History Social History Smoking status: Never smoker Alcohol intake: never Substance use: never Substance use type: does not use Do You Feel Safe in your Home?: Yes Lack of Transportation: No Lack of Food: Never True Current Housing: I Have Housing Concerned About Future Housing: No Difficulty Paying Gas/Electric Bills: No Difficulty Paying for Meds: No Currently Unemployed: No Education: Trade/Vocational Certificate Difficulty w/ Childcare or Family Care: No Living arrangements: with family Occupation/Education: retired Gender identity (if verbalized by the patient): Female Sexual Orientation (if Verbalized by the Patient): Straight or Heterosexual Spiritual care concerns: No Meds Home Medications and Allergies Home Medications Medication Instructions Recorded Confirmed Type aspirin 81 mg tablet,delayed 81 mg PO DAILY 11/06/22 07/14/24 History release atorvastatin 20 mg tablet 20 mg PO DAILY 11/06/22 07/14/24 History calcitriol 0.5 mcg capsule 0.5 mcg PO DAILY 11/06/22 07/14/24 History carvedilol 6.25 mg tablet 6.25 mg PO Q12H 11/06/22 07/14/24 History insulin lispro 100 unit/mL 1 sliding scale dose subcut 11/06/22 07/14/24 History subcutaneous cartridge (Humalog USEASDIRECTD U-100 Insulin) pantoprazole 40 mg tablet,delayed 40 mg PO QAM 11/06/22 07/14/24 History release prednisone 5 mg tablet 5 mg PO DIRECTED 11/06/22 07/14/24 History tacrolimus 4 mg tablet,extended 4 mg PO DAILY 11/06/22 07/14/24 History release 24 hr (Envarsus XR) amlodipine 5 mg tablet 5 mg PO DAILY 07/06/24 07/14/24 History lisinopril 5 mg tablet 5 mg PO DAILY 07/06/24 07/14/24 History sodium bicarbonate 650 mg tablet 650 mg PO DAILY 07/06/24 07/14/24 History sulfamethoxazole 400 1 tablet PO DAILY 07/06/24 07/14/24 History mg-trimethoprim 80 mg tablet (Bactrim) vitamin B6-vitamin E-magnesium 1 tablet PO BID 07/06/24 07/14/24 History tablet Allergies Allergy/AdvReac Type Severity Reaction Status Date / Time ampicillin Allergy Unknown RAPID HR Verified 07/14/24 07:39 codeine Allergy Unknown Nausea Verified 07/14/24 07:39 sulbactam Allergy Unknown RAPID HR Verified 07/14/24 07:39 Vital Signs Vital Signs - 24 hr 07/14/24 07:30 Temperature 98.0 F Pulse Rate 77 Respiratory Rate 18 Blood Pressure 149/79 H Pulse Oximetry 100 Oxygen Delivery Room Air Exam Const: General: comfortable and no acute distress HENMT: Face/Nose/Sinus: Normal nares present Eyes: General: appearance normal, both eyes and all related structures Neck: Neck: no JVD Resp: Auscultation: clear to auscultation bilaterally Cardio: Rate: regular rate Rhythm: regular rhythm GI: Inspection: non-distended GI Palp: Yes Soft to palpation Skin: General skin exam: normal color Neuro: General: gait normal Speech: normal speech Extrem: General: normal to inspection Psych: Mental Status: mental status grossly normal Assessment and Plan Assessment and plan (1) Colon polyp: Code(s): K63.5 - Polyp of colon Status: Acute Assessment and Plan: colonoscopy
[2024-07-14 08:25] VITALS: BP 125/60; PULSE 73; RESP 20; O2SAT 100
[2024-07-14 08:35] VITALS: BP 143/68; PULSE 75; RESP 18; O2SAT 100
[2024-07-14 08:45] VITALS: BP 137/68; PULSE 75; RESP 20; O2SAT 100
--- NOTE | 2024-07-14 09:02 | SUR.PHASEII ---
Blood sugar checked by patients continuos monitor. 125 was the reading.
== END 2024-07-14 09:02 | disposition home or self-care (01) ==
PROVIDERS: PCP Internal Medicine; Referring Provider Internal Medicine; Visit Provider Internal Medicine Gastroenterology
PROC: 0DJD8ZZ Inspection of Lower Intestinal Tract, Via Natural or Artificial Opening Endoscopic (ICD-10-PCS; CPT 45378; principal; 2024-07-14 08:30)
DX: Z12.11 Encounter for screening for malignant neoplasm of colon (principal); D12.4 Benign neoplasm of descending colon; K64.8 Other hemorrhoids; K57.30 Diverticulosis of large intestine without perforation or abscess without bleeding; I10 Essential (primary) hypertension; D50.9 Iron deficiency anemia, unspecified; Q61.3 Polycystic kidney, unspecified; M85.88 Other specified disorders of bone density and structure, other site; Z79.82 Long term (current) use of aspirin; Z79.4 Long term (current) use of insulin; Z79.52 Long term (current) use of systemic steroids; Z98.890 Other specified postprocedural states; Z90.49 Acquired absence of other specified parts of digestive tract; Z89.431 Acquired absence of right foot; Z94.0 Kidney transplant status; Z82.49 Family history of ischemic heart disease and other diseases of the circulatory system
CPT/HCPCS: 45380; 88305; J2704; J7120